=== PATIENT | female | born 1970 | race Caucasian/White ===

== ENCOUNTER → 2016-08-06 | Outpatient (CLI) | payer BC ==
[~2016-08-06] MED LIST: ALLE180T33 PO; DRIS50002 PO; FIRS1SOL3 PO; FLON0.054; LIAL1.2T PO; LIPI10TA PO; LISI10TA2 PO; LORA10TA2 PO; MICR1TAB PO; PRED10TA PO; Patient Own Medication PO; TYLE325T5 PO; UCER9TAB PO; ZOFR20TA PO
== END ==
LOC: M SMT 08:18
PROVIDERS: ATTEND Physician Assistant Medical
DX: K51.00 Ulcerative (chronic) pancolitis without complications (principal)

== ENCOUNTER 2016-08-09 07:40 | Outpatient (CLI) | payer BC ==
[~2016-08-09] VITALS: Ht 157.5 cm; Wt 80.0 kg
[~2016-08-09 07:40] MED LIST changes: -MICR1TAB PO; +MICR1TAB16 PO
[2016-08-09] MEDS ORDERED: NS 1,000 ML IV SCH (09:00)
[2016-08-09] MEDS ORDERED: inFLIXimab INJECTION 400 MG in NS 210 ML IV ONE (09:00)
[2016-08-09] MEDS ORDERED: diphenhydrAMINE 25 MG CAP PO SCH (09:00)
== END 2016-08-09 10:45 | disposition home or self-care (01) ==
LOC: M INFU 07:40
PROVIDERS: ATTEND Internal Medicine Gastroenterology
DX: K51.90 Ulcerative colitis, unspecified, without complications (principal); I10 Essential (primary) hypertension; E78.5 Hyperlipidemia, unspecified; F17.200 Nicotine dependence, unspecified, uncomplicated; Z79.899 Other long term (current) drug therapy
CPT/HCPCS: 96413; 96415; J1745

== ENCOUNTER → 2016-09-17 | Outpatient (CLI) | payer BC ==
[2016-09-17 08:34] LABS: ALBUMIN 3.6 GM/DL (3.2-5.2); ALBUMIN/GLOBULIN RATIO 1.03 (1.00-1.93); ALKALINE PHOSPHATASE 59 U/L (45-117); ALT/SGPT 34 U/L (12-78); ANION GAP 11 MEQ/L (8-16); AST/SGOT 27 U/L (15-37); BILIRUBIN,TOTAL 0.5 MG/DL (0.2-1.0); BLOOD UREA NITROGEN 16 MG/DL (7-18); CALCIUM LEVEL 9.2 MG/DL (8.5-10.1); CARBON DIOXIDE LEVEL 25 MEQ/L (21-32); CHLORIDE LEVEL 106 MEQ/L (98-107); CHOLESTEROL LEVEL 183 MG/DL (<200); CREATININE FOR GFR 0.76 MG/DL (0.55-1.02); GLOMERULAR FILTRATION RATE > 60.0 (>58); GLUCOSE, FASTING 86 MG/DL (70-105); POTASSIUM SERUM 4.1 MEQ/L (3.5-5.1); SODIUM LEVEL 142 MEQ/L (136-145); TOTAL PROTEIN 7.1 GM/DL (6.4-8.2); TRIGLYCERIDES LEVEL 179 MG/DL (<150)
== END ==
LOC: M LAB 07:16
PROVIDERS: ATTEND Nurse Practitioner Family
DX: E78.2 Mixed hyperlipidemia (principal); I10 Essential (primary) hypertension; E55.9 Vitamin D deficiency, unspecified

== ENCOUNTER 2016-09-27 10:49 | Outpatient (CLI) | payer BC ==
[~2016-09-27] VITALS: Ht 157.5 cm; Wt 80.0 kg
[~2016-09-27 10:49] MED LIST changes: +NS 1,000 ML IV SCH; +diphenhydrAMINE 25 MG CAP PO SCH; +inFLIXimab INJECTION 400 MG in NS 210 ML IV ONE
== END 2016-09-27 13:50 | disposition home or self-care (01) ==
LOC: M INFU 10:49
PROVIDERS: ATTEND Internal Medicine Gastroenterology
DX: K51.90 Ulcerative colitis, unspecified, without complications (principal); I10 Essential (primary) hypertension; E78.5 Hyperlipidemia, unspecified; Z79.899 Other long term (current) drug therapy
CPT/HCPCS: 96413; 96415; J1745

== ENCOUNTER 2016-11-19 08:35 | Outpatient (CLI) | payer BC ==
[~2016-11-19] VITALS: Ht 157.5 cm; Wt 80.0 kg
[~2016-11-19 08:35] MED LIST changes: -NS 1,000 ML IV SCH; -inFLIXimab INJECTION 400 MG in NS 210 ML IV ONE
[2016-11-19] MEDS ORDERED: NS 1,000 ML IV SCH (08:45)
[2016-11-19] MEDS ORDERED: inFLIXimab INJECTION 400 MG in NS 210 ML IV ONE (08:45)
== END 2016-11-19 12:05 | disposition home or self-care (01) ==
LOC: M INFU 08:35
PROVIDERS: ATTEND Internal Medicine Gastroenterology
DX: K51.90 Ulcerative colitis, unspecified, without complications (principal); E78.5 Hyperlipidemia, unspecified; I10 Essential (primary) hypertension; Z79.899 Other long term (current) drug therapy; Z72.0 Tobacco use
CPT/HCPCS: 96413; 96415; J1745

== ENCOUNTER → 2016-12-29 | Outpatient (CLI) | payer BC ==
[~2016-12-29] MED LIST changes: -diphenhydrAMINE 25 MG CAP PO SCH
--- NOTE | 2016-12-29 10:42 | REPMRS ---
Patient History The patient states she had a clinical breast exam in 12/2016. Family history of colorectal cancer in father at age 50 or over and colorectal cancer in 2 paternal uncles at age 50 or over. Taking hormonal contraceptives for 14 years. Digital Woman Screen Mammo: December 29, 2016 - Exam #: [id number] Bilateral CC and MLO view(s) were taken. Technologist: Coleen Soto Technologist Prior study comparison: December 30, 2015, digital woman screen mammo performed at [facility]. December 06, 2014, digital woman screen mammo performed at [facility]. December 06, 2013, digital woman screen mammo performed at [facility]. FINDINGS: There are scattered fibroglandular densities. There has been no change in the appearance of the mammogram from the prior studies. There is a mild amount of scattered fibroglandular density which is fairly symmetric. There is no interval development of dominant mass, architectural distortion, or clustered microcalcification suggestive of malignancy. ASSESSMENT: BI-RADS/ACR category 1 mammogram. Negative. Recommendation Routine screening mammogram in 1 year (for women over age 40). This mammogram was interpreted with the aid of an FDA-approved computer-aided dectection system. Electronically Signed By: Owen Mendoza MD 12/29/16 6530
== END ==
LOC: M WHC 07:50
PROVIDERS: ATTEND Nurse Practitioner Women's Health
DX: Z12.31 Encounter for screening mammogram for malignant neoplasm of breast (principal); Z92.0 Personal history of contraception

== ENCOUNTER → 2016-12-29 | Outpatient (REF) | payer BC | LOC: M SFHCWAGY 08:23 | PROVIDERS: ATTEND Nurse Practitioner Women's Health | DX: R87.610 Atypical squamous cells of undetermined significance on cytologic smear of cervix (ASC-US) (principal) ==

== ENCOUNTER → 2017-01-03 | Outpatient (REF) | payer BC | LOC: M LAB REF 15:34 | PROVIDERS: ATTEND Physician Assistant Medical | DX: K51.00 Ulcerative (chronic) pancolitis without complications (principal) ==

== ENCOUNTER → 2017-01-04 | Outpatient (CLI) | payer BC ==
[2017-01-04 15:01] LABS: BASO % 0.3 % (0.0-1.0); EOS % 0.5 % (0.0-3.0); LARGE UNSTAINED CELL # 0.2 K/mm3 (0.0-0.4); LARGE UNSTAINED CELL % 3.6 % (0.0-4.0); LYMPH % 18.9 % (24.0-44.0); MEAN CORPUSCULAR HEMOGLOBIN 31.6 pg (27.0-33.0); MEAN CORPUSCULAR HGB CONC 34.2 g/dl (32.0-36.5); MEAN CORPUSCULAR VOLUME 92.2 fl (80.0-96.0); MONO # 0.4 K/mm3 (0.0-0.8); MONO % 7.5 % (0.0-5.0); NEUTROPHILS # 3.6 K/mm3 (1.8-7.7); NEUTROPHILS % 69.3 % (36.0-66.0); PLATELET COUNT, AUTOMATED 303 k/mm3 (150-450); WHITE BLOOD COUNT 5.2 K/mm3 (4.0-10.0)
[2017-01-04 15:19] LABS: ALBUMIN 3.9 GM/DL (3.2-5.2); ALBUMIN/GLOBULIN RATIO 1.08 (1.00-1.93); ALKALINE PHOSPHATASE 61 U/L (45-117); ALT/SGPT 62 U/L (12-78); ANION GAP 8 MEQ/L (8-16); AST/SGOT 58 U/L (15-37); BILIRUBIN,TOTAL 0.4 MG/DL (0.2-1.0); BLOOD UREA NITROGEN 13 MG/DL (7-18); CALCIUM LEVEL 8.4 MG/DL (8.5-10.1); CARBON DIOXIDE LEVEL 22 MEQ/L (21-32); CHLORIDE LEVEL 104 MEQ/L (98-107); CREATININE FOR GFR 0.71 MG/DL (0.55-1.02); GLOMERULAR FILTRATION RATE > 60.0 (>58); GLUCOSE, FASTING 89 MG/DL (70-105); POTASSIUM SERUM 3.1 MEQ/L (3.5-5.1); SODIUM LEVEL 134 MEQ/L (136-145); TOTAL PROTEIN 7.5 GM/DL (6.4-8.2)
[2017-01-04 15:51] LABS: ERYTHROCYTE SEDIMENTATION RATE 26 mm/hr (0-20)
== END ==
LOC: M LAB 13:59
PROVIDERS: ATTEND Internal Medicine Gastroenterology
DX: K51.011 Ulcerative (chronic) pancolitis with rectal bleeding (principal)

== ENCOUNTER → 2017-01-14 | Outpatient (CLI) | payer BC ==
[~2017-01-14] VITALS: Ht 157.5 cm; Wt 79.8 kg
[~2017-01-14] MED LIST changes: +NS 1,000 ML IV SCH; +diphenhydrAMINE 25 MG CAP PO SCH; +inFLIXimab INJECTION 400 MG in NS 210 ML IV ONE
== END ==
LOC: M INFU 07:43
PROVIDERS: ATTEND Internal Medicine Gastroenterology
DX: K51.90 Ulcerative colitis, unspecified, without complications (principal); F17.210 Nicotine dependence, cigarettes, uncomplicated; Z79.899 Other long term (current) drug therapy
CPT/HCPCS: 96413; 96415; J1745

== ENCOUNTER 2017-03-07 12:11 | Outpatient (CLI) | payer BC ==
[~2017-03-07] VITALS: Ht 157.5 cm; Wt 79.8 kg
[~2017-03-07 12:11] MED LIST changes: -NS 1,000 ML IV SCH; -inFLIXimab INJECTION 400 MG in NS 210 ML IV ONE
[2017-03-07] MEDS ORDERED: inFLIXimab INJECTION 400 MG in NS 210 ML IV ONE (12:30)
[2017-03-07] MEDS ORDERED: NS 1,000 ML IV SCH (12:30)
== END 2017-03-07 13:25 | disposition home or self-care (01) ==
LOC: M INFU 12:11
PROVIDERS: ATTEND Internal Medicine Gastroenterology
DX: K51.90 Ulcerative colitis, unspecified, without complications (principal); Z79.899 Other long term (current) drug therapy; Z72.0 Tobacco use
CPT/HCPCS: 96413; 96415; J1745

== ENCOUNTER → 2017-04-05 | Outpatient (CLI) | payer BC ==
[~2017-04-05] MED LIST changes: -diphenhydrAMINE 25 MG CAP PO SCH
[2017-04-05 07:45] LABS: ALBUMIN 3.7 GM/DL (3.2-5.2); ALBUMIN/GLOBULIN RATIO 0.97 (1.00-1.93); ALKALINE PHOSPHATASE 50 U/L (45-117); ALT/SGPT 32 U/L (12-78); ANION GAP 10 MEQ/L (8-16); AST/SGOT 18 U/L (15-37); BILIRUBIN,TOTAL 0.5 MG/DL (0.2-1.0); BLOOD UREA NITROGEN 15 MG/DL (7-18); CALCIUM LEVEL 8.9 MG/DL (8.5-10.1); CARBON DIOXIDE LEVEL 24 MEQ/L (21-32); CHLORIDE LEVEL 108 MEQ/L (98-107); GLOMERULAR FILTRATION RATE > 60.0 (>58); GLUCOSE, FASTING 90 MG/DL (70-105); POTASSIUM SERUM 4.6 MEQ/L (3.5-5.1); SODIUM LEVEL 142 MEQ/L (136-145); TOTAL PROTEIN 7.5 GM/DL (6.4-8.2)
== END ==
LOC: M LAB 06:32
PROVIDERS: ATTEND Nurse Practitioner Family
DX: I10 Essential (primary) hypertension (principal); E55.9 Vitamin D deficiency, unspecified

== ENCOUNTER → 2017-04-15 | Outpatient (CLI) | payer BC ==
--- NOTE | 2017-04-15 10:28 | REP ---
Renal ultrasound: The kidneys are normal size. The right kidney measures 10.9 x 501 x 4.3 cm. Left kidney measures 1.2 x 5.9 x 4.6 cm. Renal cortical echogenicity is normal bilaterally. There is no calculus, hydronephrosis or mass in the right and left kidneys. There is a 2.0 cm cyst in the upper pole of the left kidney. This measured 1.[address] of the abdomen pelvis dated 04/24/2015. There is no right renal cyst. Bladder ultrasound: The bladder is adequately distended. There are bilateral ureteral jets into the urinary bladder. No bladder wall polyps or masses are identified. Impression: 2.0 cm left renal upper pole cyst as described. Otherwise, negative renal ultrasound.
== END ==
LOC: M WHC 08:10
PROVIDERS: ATTEND Nurse Practitioner Family
DX: N28.1 Cyst of kidney, acquired (principal)

== ENCOUNTER 2017-05-02 11:41 | Outpatient (CLI) | payer BC ==
[2017-05-02] MEDS ORDERED: diphenhydrAMINE 25 MG CAP PO ONE (11:45)
[2017-05-02] MEDS ORDERED: NS 1,000 ML IV SCH (11:45)
[2017-05-02] MEDS ORDERED: inFLIXimab INJECTION 400 MG in NS 210 ML IV ONE (11:45)
== END 2017-05-02 14:30 | disposition home or self-care (01) ==
LOC: M INFU 11:41
PROVIDERS: ATTEND Internal Medicine Gastroenterology
DX: K51.90 Ulcerative colitis, unspecified, without complications (principal); Z79.899 Other long term (current) drug therapy
CPT/HCPCS: 96413; 96415; J1745

== ENCOUNTER 2017-06-27 11:49 | Outpatient (CLI) | payer BC ==
[~2017-06-27 11:49] MED LIST changes: +NS 1,000 ML IV SCH; +diphenhydrAMINE 25 MG CAP PO ONE; +inFLIXimab INJECTION 400 MG in NS 210 ML IV ONE
== END 2017-06-27 14:45 | disposition home or self-care (01) ==
LOC: M INFU 11:49
PROVIDERS: ATTEND Internal Medicine Gastroenterology
DX: K51.911 Ulcerative colitis, unspecified with rectal bleeding (principal); Z86.19 Personal history of other infectious and parasitic diseases; I10 Essential (primary) hypertension; E11.9 Type 2 diabetes mellitus without complications; E78.5 Hyperlipidemia, unspecified; Z79.899 Other long term (current) drug therapy
CPT/HCPCS: 96413; 96415; J1745

== ENCOUNTER → 2017-08-11 | Outpatient (CLI) | payer BC ==
[2017-08-12 09:47] LABS: HEPATITIS B SURFACE ANTIGEN NEGATIVE (NEGATIVE)
[2017-08-13 08:06] LABS: QUANTIFERON GOLD TB Negative (Negative); TB Test (QFT) Antigen 0.04 IU/mL (.); TB Test (QFT) Antigen Minus Ni 0.03 IU/mL (.); TB Test (QFT) Mitogen >10.00 IU/mL (.); TB Test (QFT) Nil 0.01 IU/mL (.)
== END ==
LOC: M LAB 08:54
DX: K51.00 Ulcerative (chronic) pancolitis without complications (principal)
CPT/HCPCS: 87340

== ENCOUNTER 2017-08-22 11:49 | Outpatient (CLI) | payer BC ==
[2017-08-22] MEDS: diphenhydrAMINE 25 MG CAP PO (12:17)
[2017-08-22] MEDS: NS 1,000 ML IV (12:17)
[2017-08-22] MEDS: inFLIXimab INJECTION 400 MG in NS 210 ML IV (12:18)
== END 2017-08-22 14:50 | disposition home or self-care (01) ==
LOC: M INFU 11:49
DX: K51.90 Ulcerative colitis, unspecified, without complications (principal); Z86.19 Personal history of other infectious and parasitic diseases; Z79.899 Other long term (current) drug therapy
CPT/HCPCS: 96413

== ENCOUNTER → 2017-10-04 | Outpatient (CLI) | payer BC ==
[2017-10-04 07:14] LABS: ALBUMIN 3.6 GM/DL (3.2-5.2); ALBUMIN/GLOBULIN RATIO 0.95 (1.00-1.93); ALKALINE PHOSPHATASE 53 U/L (45-117); ALT/SGPT 19 U/L (12-78); ANION GAP 10 MEQ/L (8-16); AST/SGOT 14 U/L (7-37); BILIRUBIN,TOTAL 0.4 MG/DL (0.2-1.0); BLOOD UREA NITROGEN 15 MG/DL (7-18); CALCIUM LEVEL 8.7 MG/DL (8.5-10.1); CARBON DIOXIDE LEVEL 22 MEQ/L (21-32); CHLORIDE LEVEL 108 MEQ/L (98-107); CHOLESTEROL LEVEL 165 MG/DL (<200); CHOLESTEROL RISK RATIO 2.462 (<5); CREATININE FOR GFR 0.76 MG/DL (0.55-1.30); GLOMERULAR FILTRATION RATE > 60.0 (>58); GLUCOSE, FASTING 94 MG/DL (70-100); HDL CHOLESTEROL 67 MG/DL (>40); LDL CHOLESTEROL 57.2 MG/DL (<100); NON-HDL-C 98 MG/DL; POTASSIUM SERUM 4.2 MEQ/L (3.5-5.1); SODIUM LEVEL 140 MEQ/L (136-145); TOTAL PROTEIN 7.4 GM/DL (6.4-8.2); TRIGLYCERIDES LEVEL 204 MG/DL (<150)
[2017-10-04 10:01] LABS: TOTAL 25(OH) VITAMIN D 31.1 NG/ML (30.0-100.0)
== END ==
LOC: M LAB 06:23
DX: I10 Essential (primary) hypertension (principal); E78.2 Mixed hyperlipidemia; E55.9 Vitamin D deficiency, unspecified
CPT/HCPCS: 80053

== ENCOUNTER 2017-10-17 12:04 | Outpatient (CLI) | payer BC ==
[2017-10-17] MEDS: inFLIXimab INJECTION 400 MG in NS 210 ML IV (12:56)
[2017-10-17] MEDS: diphenhydrAMINE 25 MG CAP PO (12:56)
[2017-10-17] MEDS: NS 1,000 ML IV (12:56)
== END 2017-10-17 15:45 | disposition home or self-care (01) ==
LOC: M INFU 12:04
DX: K51.90 Ulcerative colitis, unspecified, without complications (principal); F17.210 Nicotine dependence, cigarettes, uncomplicated; Z79.899 Other long term (current) drug therapy; J30.89 Other allergic rhinitis; Z86.19 Personal history of other infectious and parasitic diseases; Z94.89 Other transplanted organ and tissue status
CPT/HCPCS: J1745

== ENCOUNTER 2017-12-12 12:14 | Outpatient (CLI) | payer BC ==
[2017-12-12] MEDS: diphenhydrAMINE 25 MG CAP PO (12:32)
[2017-12-12] MEDS: ACETAMINOPHEN TAB 650MG DOSE (2X325MG) PO (12:32)
[2017-12-12] MEDS: NS 1,000 ML IV (12:32)
[2017-12-12] MEDS: FILTER 1.2 MICRON (ADULT TPN/MANNITOL/REMICADE) XX (12:34)
[2017-12-12] MEDS: inFLIXimab INJECTION 500 MG in NS 200 ML IV (12:34)
== END 2017-12-12 15:00 | disposition home or self-care (01) ==
LOC: M INFU 12:14
DX: K51.80 Other ulcerative colitis without complications (principal); Z79.899 Other long term (current) drug therapy
CPT/HCPCS: J1745

== ENCOUNTER → 2017-12-29 | Outpatient (REF) | payer BC | LOC: M SFHCWAGY 08:39 | DX: Z12.4 Encounter for screening for malignant neoplasm of cervix (principal) | CPT/HCPCS: G0123 ==

== ENCOUNTER 2018-02-06 13:16 | Outpatient (CLI) | payer BC ==
[2018-02-06] MEDS: ACETAMINOPHEN TAB 650MG DOSE (2X325MG) PO (13:45)
[2018-02-06] MEDS: FILTER 1.2 MICRON (ADULT TPN/MANNITOL/REMICADE) XX (13:45)
[2018-02-06] MEDS ORDERED: NS 1,000 ML IV (13:45)
[2018-02-06] MEDS: diphenhydrAMINE 25 MG CAP PO (14:03)
[2018-02-06] MEDS: inFLIXimab INJECTION 500 MG in NS 200 ML IV (14:33)
== END 2018-02-06 17:00 | disposition home or self-care (01) ==
LOC: M INFU 13:16
DX: K51.90 Ulcerative colitis, unspecified, without complications (principal); Z79.899 Other long term (current) drug therapy
CPT/HCPCS: J1745

== ENCOUNTER → 2018-03-30 | Outpatient (CLI) | payer BC ==
[2018-03-30 07:09] LABS: BASO # 0.1 10^3/uL (0.0-0.2); BASO % 0.6 % (0.0-1.0); EOS # 0.1 10^3/uL (0.0-0.50); EOS % 1.4 % (0.0-3.0); HEMATOCRIT 41.2 % (36.0-47.0); HEMOGLOBIN 13.8 g/dl (12.0-15.5); IMMATURE GRANULOCYTE % 0.3 % (0-3.0); LYMPH # 2.4 10^3/uL (1.5-4.5); LYMPH % 30.6 % (24.0-44.0); MEAN CORPUSCULAR HGB CONC 33.5 g/dl (32.0-36.5); MEAN CORPUSCULAR VOLUME 92.6 fl (80.0-96.0); MONO # 0.6 10^3/uL (0.0-0.8); MONO % 8.2 % (0.0-5.0); NEUTROPHILS # 4.6 10^3/uL (1.8-7.7); NEUTROPHILS % 58.9 % (36.0-66.0); PLATELET COUNT, AUTOMATED 347 10^3/uL (150-450); RED BLOOD COUNT 4.45 10^6/uL (4.00-5.40); RED CELL DISTRIBUTION WIDTH 13.5 % (11.5-14.5); WHITE BLOOD COUNT 7.8 10^3/uL (4.0-10.0)
== END ==
LOC: M LAB 06:33
DX: K51.00 Ulcerative (chronic) pancolitis without complications (principal)

== ENCOUNTER → 2018-03-30 | Outpatient (CLI) | payer BC ==
[2018-03-30 07:36] LABS: ALBUMIN 3.7 GM/DL (3.2-5.2); ALKALINE PHOSPHATASE 51 U/L (45-117); ALT/SGPT 33 U/L (12-78); ANION GAP 14 MEQ/L (8-16); AST/SGOT 25 U/L (7-37); BILIRUBIN,TOTAL 0.4 MG/DL (0.2-1.0); BLOOD UREA NITROGEN 14 MG/DL (7-18); CARBON DIOXIDE LEVEL 20 MEQ/L (21-32); CHLORIDE LEVEL 108 MEQ/L (98-107); CHOLESTEROL LEVEL 175 MG/DL (<200); CHOLESTEROL RISK RATIO 2.777 (<5); CREATININE FOR GFR 0.76 MG/DL (0.55-1.30); FREE T4 1.14 NG/DL (0.76-1.46); GLOMERULAR FILTRATION RATE > 60.0 (>58); GLUCOSE, FASTING 85 MG/DL (70-100); HDL CHOLESTEROL 63 MG/DL (>40); NON-HDL-C 112 MG/DL; POTASSIUM SERUM 4.2 MEQ/L (3.5-5.1); SODIUM LEVEL 142 MEQ/L (136-145); TOTAL PROTEIN 7.4 GM/DL (6.4-8.2); TRIGLYCERIDES LEVEL 180 MG/DL (<150)
[2018-03-30 13:01] LABS: TOTAL 25(OH) VITAMIN D 48.6 NG/ML (30.0-100.0)
== END ==
LOC: M LAB 06:35
DX: I10 Essential (primary) hypertension (principal)

== ENCOUNTER 2018-04-03 12:18 | Outpatient (CLI) | payer BC ==
[2018-04-03] MEDS: NS 1,000 ML IV (12:47)
[2018-04-03] MEDS: inFLIXimab INJECTION 500 MG in NS 200 ML IV (12:47)
[2018-04-03] MEDS: FILTER 1.2 MICRON (ADULT TPN/MANNITOL/REMICADE) XX (12:47)
[2018-04-03] MEDS: ACETAMINOPHEN TAB 650MG DOSE (2X325MG) PO (12:48)
[2018-04-03] MEDS: diphenhydrAMINE 25 MG CAP PO (12:48)
== END 2018-04-03 15:40 | disposition home or self-care (01) ==
LOC: M INFU 12:18
DX: K51.919 Ulcerative colitis, unspecified with unspecified complications (principal); I10 Essential (primary) hypertension; Z79.899 Other long term (current) drug therapy; J30.2 Other seasonal allergic rhinitis; Z98.51 Tubal ligation status; Z90.49 Acquired absence of other specified parts of digestive tract
CPT/HCPCS: J1745

== ENCOUNTER 2018-04-11 08:46 | Day surgery (SDC) | payer BC ==
[~2018-04-11 08:46] MED LIST changes: -ALLE180T33 PO; -DRIS50002 PO; -FIRS1SOL3 PO; -FLON0.054; -LIAL1.2T PO; +LIDOCAINE 2% INJ 100 MG/5 ML SDV (FOR ANES.) As Ordered; -LIPI10TA PO; -LISI10TA2 PO; -LORA10TA2 PO; -MICR1TAB16 PO; -NS 1,000 ML IV SCH; -PRED10TA PO; +PROPOFOL 200 MG/20 ML VIAL As Ordered; -Patient Own Medication PO; -TYLE325T5 PO; -UCER9TAB PO; -ZOFR20TA PO; -diphenhydrAMINE 25 MG CAP PO ONE; -inFLIXimab INJECTION 400 MG in NS 210 ML IV ONE
[2018-04-11] MEDS ORDERED: NS 1,000 ML IV (09:15)
[2018-04-11] MEDS ORDERED: PROPOFOL 200 MG/20 ML VIAL As Ordered ×2 (10:25)
== END 2018-04-11 11:05 | disposition home or self-care (01) ==
LOC: M OPP 08:46
DX: Z12.11 Encounter for screening for malignant neoplasm of colon (principal); Z80.0 Family history of malignant neoplasm of digestive organs; Z86.010 Personal history of colon polyps; K51.40 Inflammatory polyps of colon without complications; I10 Essential (primary) hypertension; E78.5 Hyperlipidemia, unspecified; Z86.19 Personal history of other infectious and parasitic diseases; Z87.891 Personal history of nicotine dependence; Z79.899 Other long term (current) drug therapy
CPT/HCPCS: 45385

== ENCOUNTER 2018-05-29 12:12 | Outpatient (CLI) | payer BC ==
[2018-05-29] MEDS: ACETAMINOPHEN TAB 650MG DOSE (2X325MG) PO (12:15)
[2018-05-29] MEDS: NS 1,000 ML IV (12:15)
[2018-05-29] MEDS: FILTER 1.2 MICRON (ADULT TPN/MANNITOL/REMICADE) XX (12:15)
[2018-05-29] MEDS: diphenhydrAMINE 25 MG CAP PO (12:51)
[2018-05-29] MEDS: inFLIXimab INJECTION 500 MG in NS 200 ML IV (12:53)
== END 2018-05-29 15:25 | disposition home or self-care (01) ==
LOC: M INFU 12:12
DX: K51.90 Ulcerative colitis, unspecified, without complications (principal); Z79.899 Other long term (current) drug therapy
CPT/HCPCS: J1745

== ENCOUNTER 2018-07-26 13:40 | Outpatient (CLI) | payer BC ==
[~2018-07-26] VITALS: Ht 157.5 cm; Wt 83.9 kg
[~2018-07-26 13:40] MED LIST changes: +ALLE180T33 PO; +ATOR1TAB21 PO; +AZEL1SPR3; +DRIS50003 PO; +FIRS50SO PO; +FLON0.054; +FLUTISP; +INFL10VL IV; +LIAL1.2T PO; -LIDOCAINE 2% INJ 100 MG/5 ML SDV (FOR ANES.) As Ordered; +LIPI10TA PO; +LISI10TA2 PO; +LORA-243 PO; +MICR1TAB16 PO; +PRED10TA PO; -PROPOFOL 200 MG/20 ML VIAL As Ordered; +Patient Own Medication PO; +TYLE325T5 PO; +UCER9TAB PO; +VITA200015 PO; +VITATAB54 PO; +ZOFR4TAB16 PO
[2018-07-26 13:58] VITALS: BP 154/72
[2018-07-26] MEDS ORDERED: inFLIXimab INJECTION 500 MG in NS 200 ML IV ONE (14:00)
[2018-07-26] MEDS ORDERED: diphenhydrAMINE 25MG PO PRIOR TO INFUSION PO ONE (14:00)
[2018-07-26] MEDS ORDERED: NS 1,000 ML IV SCH (14:00)
[2018-07-26] MEDS ORDERED: ACETAMINOPHEN 650MG PO PRIOR TO INFUSION PO ONE (14:00)
[2018-07-26] MEDS ORDERED: FILTER 1.2 MICRON (ADULT TPN/MANNITOL/REMICADE) XX ONE (14:00)
[2018-07-26 14:45] VITALS: BP 119/63
[2018-07-26 15:30] VITALS: BP 112/60
[2018-07-26 16:00] VITALS: BP 116/66
[2018-07-26 16:15] VITALS: BP 116/70
== END 2018-07-26 16:20 | disposition home or self-care (01) ==
LOC: M INFU 13:40
PROVIDERS: ATTEND Internal Medicine Gastroenterology
DX: K51.90 Ulcerative colitis, unspecified, without complications (principal); I10 Essential (primary) hypertension; Z79.899 Other long term (current) drug therapy
CPT/HCPCS: 96413; 96415; J1745

== ENCOUNTER → 2018-08-14 | Outpatient (CLI) | payer BC | LOC: M LAB 10:11 | PROVIDERS: ATTEND Physician Assistant Medical | DX: K51.00 Ulcerative (chronic) pancolitis without complications (principal) ==

== ENCOUNTER 2018-09-18 12:15 | Outpatient (CLI) | payer BC ==
[~2018-09-18] VITALS: Ht 162.6 cm; Wt 83.9 kg
[2018-09-18] VITALS (8 sets, daily range): BP systolic 105–155; BP diastolic 56–78
[2018-09-18] MEDS: ACETAMINOPHEN 650MG PO PRIOR TO INFUSION PO ONE ×2 (12:52→13:23)
[2018-09-18] MEDS: diphenhydrAMINE 25MG PO PRIOR TO INFUSION PO ONE ×2 (12:52→13:23)
[2018-09-18] MEDS ORDERED: FILTER 1.2 MICRON (ADULT TPN/MANNITOL/REMICADE) XX ONE (13:00)
[2018-09-18] MEDS ORDERED: inFLIXimab INJECTION 500 MG in NS 200 ML IV ONE (13:00)
[2018-09-18] MEDS ORDERED: NS 1,000 ML IV SCH (13:00)
== END 2018-09-18 15:20 | disposition home or self-care (01) ==
LOC: M INFU 12:15
PROVIDERS: ATTEND Internal Medicine Gastroenterology
DX: K51.90 Ulcerative colitis, unspecified, without complications (principal); Z79.899 Other long term (current) drug therapy; J30.2 Other seasonal allergic rhinitis
CPT/HCPCS: 96413; 96415; J1745

== ENCOUNTER → 2018-10-02 | Outpatient (CLI) | payer BC ==
[2018-10-02 07:37] LABS: ALBUMIN 3.6 GM/DL (3.2-5.2); ALT/SGPT 22 U/L (12-78); BILIRUBIN,TOTAL 0.5 MG/DL (0.2-1.0); BLOOD UREA NITROGEN 18 MG/DL (7-18); CALCIUM LEVEL 8.8 MG/DL (8.5-10.1); CARBON DIOXIDE LEVEL 23 MEQ/L (21-32); CHLORIDE LEVEL 107 MEQ/L (98-107); CHOLESTEROL LEVEL 157 MG/DL (<200); CHOLESTEROL RISK RATIO 2.275 (<5); GLOMERULAR FILTRATION RATE > 60.0 (>58); GLUCOSE, FASTING 89 MG/DL (70-100); HDL CHOLESTEROL 69 MG/DL (>40); LDL CHOLESTEROL 60 MG/DL (<100); NON-HDL-C 88 MG/DL; POTASSIUM SERUM 4.1 MEQ/L (3.5-5.1); SODIUM LEVEL 139 MEQ/L (136-145); TOTAL PROTEIN 7.2 GM/DL (6.4-8.2); TRIGLYCERIDES LEVEL 141 MG/DL (<150)
[2018-10-02 10:22] LABS: TOTAL 25(OH) VITAMIN D 30.8 NG/ML (30.0-100.0)
== END ==
LOC: M LAB 06:40
PROVIDERS: ATTEND Nurse Practitioner Family
DX: I10 Essential (primary) hypertension (principal); E78.2 Mixed hyperlipidemia; E55.9 Vitamin D deficiency, unspecified

== ENCOUNTER 2018-11-13 12:20 | Outpatient (CLI) | payer BC ==
[~2018-11-13] VITALS: Ht 162.6 cm; Wt 83.9 kg
[~2018-11-13 12:20] MED LIST changes: +PRED-351 PO; -PRED10TA PO
[2018-11-13 12:29] VITALS: BP 148/68
[2018-11-13] MEDS ORDERED: diphenhydrAMINE 25MG PO PRIOR TO INFUSION PO ONE (12:30)
[2018-11-13] MEDS ORDERED: NS 1,000 ML IV SCH (12:30)
[2018-11-13] MEDS ORDERED: inFLIXimab INJECTION 500 MG in NS 200 ML IV ONE (12:30)
[2018-11-13] MEDS ORDERED: ACETAMINOPHEN 650MG PO PRIOR TO INFUSION PO ONE (12:30)
[2018-11-13] MEDS ORDERED: FILTER 1.2 MICRON (ADULT TPN/MANNITOL/REMICADE) XX ONE (12:30)
[2018-11-13 14:49] VITALS: BP 115/71
[2018-11-13 15:05] VITALS: BP 119/78
== END 2018-11-13 15:15 | disposition home or self-care (01) ==
LOC: M INFU 12:20
PROVIDERS: ATTEND Internal Medicine Gastroenterology
DX: K51.90 Ulcerative colitis, unspecified, without complications (principal)
CPT/HCPCS: 96413; 96415; J1745

== ENCOUNTER → 2018-12-28 | Outpatient (CLI) | payer BC ==
--- NOTE | 2018-12-28 10:48 | REPMRS ---
Patient History The patient states she had a clinical breast exam in 12/2018. Family history of colorectal cancer at age 50 or over in father, colorectal cancer at age 50 or over in paternal uncle, colorectal cancer at age 50 or over in paternal uncle. Taking hormonal contraceptives for 16 years. 3D TOMOSYNTHESIS WAS PERFORMED. Digital Woman Screen Mammo: December 28, 2018 - Exam #: [id number] Bilateral CC and MLO view(s) were taken. Technologist: Sheila Garcia, Technologist Prior study comparison: December 29, 2017, digital woman screen mammo performed at [facility]. December 29, 2016, digital woman screen mammo performed at [facility]. FINDINGS: The breast tissue is heterogeneously dense. This may lower the sensitivity of mammography. There has been no change in the appearance of the mammogram from the prior studies. There is a moderate amount of residual fibroglandular tissue which is fairly symmetric. There is no interval development of dominant mass, areas of architectural distortion, or clustered microcalcification typical of malignancy. Assessment: BI-RADS/ACR category 1 mammogram. Negative Mammogram. Recommendation Routine screening mammogram in 1 year (for women over age 40). This mammogram was interpreted with the aid of an FDA-approved computer-aided dectection system. Electronically Signed By: Tom Grant MD 12/28/18 1714
== END ==
LOC: M WHC 08:06
PROVIDERS: ATTEND Nurse Practitioner Women's Health
DX: Z12.31 Encounter for screening mammogram for malignant neoplasm of breast (principal); Z80.0 Family history of malignant neoplasm of digestive organs; Z79.3 Long term (current) use of hormonal contraceptives

== ENCOUNTER 2019-01-09 12:03 | Outpatient (CLI) | payer BC ==
[~2019-01-09] VITALS: Ht 162.6 cm; Wt 85.7 kg
[2019-01-09 12:50] VITALS: BP 118/65
[2019-01-09] MEDS ORDERED: FILTER 1.2 MICRON (ADULT TPN/MANNITOL/REMICADE) XX ONE (13:00)
[2019-01-09] MEDS ORDERED: ACETAMINOPHEN 650MG PO PRIOR TO INFUSION PO ONE (13:00)
[2019-01-09] MEDS ORDERED: NS 1,000 ML IV SCH (13:00)
[2019-01-09] MEDS ORDERED: inFLIXimab INJECTION 500 MG in NS 200 ML IV ONE (13:00)
[2019-01-09] MEDS ORDERED: diphenhydrAMINE 25MG PO PRIOR TO INFUSION PO ONE (13:00)
== END 2019-01-09 14:10 | disposition home or self-care (01) ==
LOC: M INFU 12:03
PROVIDERS: ATTEND Physician Assistant Medical
DX: K51.919 Ulcerative colitis, unspecified with unspecified complications (principal)
CPT/HCPCS: 96413; J1745

== ENCOUNTER 2019-03-05 12:18 | Outpatient (CLI) | payer BC ==
[~2019-03-05] VITALS: Ht 162.6 cm; Wt 85.7 kg
[~2019-03-05 12:18] MED LIST changes: +LISI10TA15 PO; -LISI10TA2 PO
[2019-03-05 12:30] VITALS: BP 129/68
[2019-03-05] MEDS ORDERED: FILTER 1.2 MICRON (ADULT TPN/MANNITOL/REMICADE) XX ONE (12:45)
[2019-03-05] MEDS ORDERED: NS 1,000 ML IV SCH (13:30)
[2019-03-05] MEDS ORDERED: ACETAMINOPHEN 650MG PO PRIOR TO INFUSION PO ONE (13:30)
[2019-03-05] MEDS ORDERED: diphenhydrAMINE 25MG PO PRIOR TO INFUSION PO ONE (13:30)
[2019-03-05] MEDS ORDERED: inFLIXimab INJECTION 500 MG in NS 200 ML IV ONE (14:00)
== END 2019-03-05 14:45 | disposition home or self-care (01) ==
LOC: M INFU 12:18
PROVIDERS: ATTEND Internal Medicine Gastroenterology
DX: K51.90 Ulcerative colitis, unspecified, without complications (principal)
CPT/HCPCS: 96413; J1745

== ENCOUNTER → 2019-03-30 | Outpatient (CLI) | payer BC ==
[2019-03-30 07:45] LABS: BLOOD UREA NITROGEN 13 MG/DL (7-18); CALCIUM LEVEL 9.5 MG/DL (8.5-10.1); CARBON DIOXIDE LEVEL 23 MEQ/L (21-32); CHLORIDE LEVEL 108 MEQ/L (98-107); CREATININE FOR GFR 0.76 MG/DL (0.55-1.30); GLOMERULAR FILTRATION RATE > 60.0 (>58); GLUCOSE, FASTING 91 MG/DL (70-100); POTASSIUM SERUM 4.4 MEQ/L (3.5-5.1); SODIUM LEVEL 140 MEQ/L (136-145)
[2019-03-30 11:33] LABS: TOTAL 25(OH) VITAMIN D 38.6 NG/ML (30.0-100.0)
== END ==
LOC: M LAB 06:34
PROVIDERS: ATTEND Nurse Practitioner Family
DX: I10 Essential (primary) hypertension (principal); E55.9 Vitamin D deficiency, unspecified

== ENCOUNTER 2019-04-30 12:08 | Outpatient (CLI) | payer BC ==
[~2019-04-30] VITALS: Ht 157.5 cm; Wt 85.7 kg
[2019-04-30 12:15] VITALS: BP 127/62
[2019-04-30] MEDS ORDERED: diphenhydrAMINE 25MG PO PRIOR TO INFUSION PO ONE (12:15)
[2019-04-30] MEDS ORDERED: NS 1,000 ML IV SCH (12:15)
[2019-04-30] MEDS ORDERED: FILTER 1.2 MICRON (ADULT TPN/MANNITOL/REMICADE) XX ONE (12:15)
[2019-04-30] MEDS ORDERED: ACETAMINOPHEN 650MG PO PRIOR TO INFUSION PO ONE (12:15)
[2019-04-30] MEDS ORDERED: inFLIXimab INJECTION 500 MG in NS 200 ML IV ONE (12:15)
[2019-04-30 13:15] VITALS: BP 128/60
[2019-04-30 14:05] VITALS: BP 113/66
[2019-04-30 14:25] VITALS: BP 118/70
== END 2019-04-30 14:20 | disposition home or self-care (01) ==
LOC: M INFU 12:08
PROVIDERS: ATTEND Internal Medicine Gastroenterology
DX: K51.90 Ulcerative colitis, unspecified, without complications (principal)
CPT/HCPCS: 96413; J1745

== ENCOUNTER 2019-06-25 12:09 | Outpatient (CLI) | payer BC ==
[~2019-06-25] VITALS: Ht 157.5 cm; Wt 85.7 kg
[2019-06-25 12:15] VITALS: BP 125/82
[2019-06-25] MEDS ORDERED: inFLIXimab INJECTION 500 MG in NS 200 ML IV ONE (12:30)
[2019-06-25] MEDS ORDERED: diphenhydrAMINE 25MG PO PRIOR TO INFUSION PO ONE (12:30)
[2019-06-25] MEDS ORDERED: NS 1,000 ML IV SCH (12:30)
[2019-06-25] MEDS ORDERED: FILTER 1.2 MICRON (ADULT TPN/MANNITOL/REMICADE) XX ONE (12:30)
[2019-06-25] MEDS ORDERED: ACETAMINOPHEN 650MG PO PRIOR TO INFUSION PO ONE (12:30)
[2019-06-25 13:15] VITALS: BP 127/79
[2019-06-25 14:00] VITALS: BP 105/70
[2019-06-25 14:15] VITALS: BP 115/67
== END 2019-06-25 14:15 | disposition home or self-care (01) ==
LOC: M INFU 12:09
PROVIDERS: ATTEND Internal Medicine Gastroenterology
DX: K51.90 Ulcerative colitis, unspecified, without complications (principal)
CPT/HCPCS: 96413; J1745

== ENCOUNTER 2019-08-20 10:46 | Outpatient (CLI) | payer BC ==
[~2019-08-20] VITALS: Ht 157.5 cm; Wt 87.5 kg
[2019-08-20 10:56] VITALS: BP 144/69
[2019-08-20] MEDS ORDERED: ACETAMINOPHEN 650MG PO PRIOR TO INFUSION PO ONE (11:00)
[2019-08-20] MEDS ORDERED: diphenhydrAMINE 25MG IV PRIOR TO INFUSION IV ONE (11:00)
[2019-08-20] MEDS ORDERED: diphenhydrAMINE 25MG PO PRIOR TO INFUSION PO ONE (11:00)
[2019-08-20] MEDS ORDERED: NS 1,000 ML IV SCH (11:00)
[2019-08-20] MEDS ORDERED: inFLIXimab INJECTION 500 MG in NS 200 ML IV ONE (11:15)
[2019-08-20 12:46] VITALS: BP 164/72
== END 2019-08-20 12:50 | disposition home or self-care (01) ==
LOC: M INFU 10:46
PROVIDERS: ATTEND Internal Medicine Gastroenterology
DX: K51.90 Ulcerative colitis, unspecified, without complications (principal)
CPT/HCPCS: 96413; J1745

== ENCOUNTER → 2019-08-21 | Outpatient (CLI) | payer BC | LOC: M LAB 08:42 | PROVIDERS: ATTEND Physician Assistant Medical | DX: K51.00 Ulcerative (chronic) pancolitis without complications (principal) ==

== ENCOUNTER → 2019-09-13 | Outpatient (REF) | payer BC | LOC: M LAB REF 19:51 | PROVIDERS: ATTEND Nurse Practitioner Family | DX: J02.9 Acute pharyngitis, unspecified (principal) ==

== ENCOUNTER → 2019-09-16 | Outpatient (CLI) | payer BC ==
[2019-09-16 12:52] LABS: ALBUMIN 3.6 GM/DL (3.2-5.2); ALT/SGPT 71 U/L (12-78); BILIRUBIN,TOTAL 0.3 MG/DL (0.2-1.0); BLOOD UREA NITROGEN 11 MG/DL (7-18); CALCIUM LEVEL 8.6 MG/DL (8.5-10.1); CARBON DIOXIDE LEVEL 21 MEQ/L (21-32); CHLORIDE LEVEL 109 MEQ/L (98-107); CHOLESTEROL LEVEL 157 MG/DL (<200); CHOLESTEROL RISK RATIO 2.242 (<5); CREATININE FOR GFR 0.77 MG/DL (0.55-1.30); GLOMERULAR FILTRATION RATE > 60.0 (>58); GLUCOSE, FASTING 83 MG/DL (70-100); HDL CHOLESTEROL 70 MG/DL (>40); LDL CHOLESTEROL 57 MG/DL (<100); NON-HDL-C 87 MG/DL; POTASSIUM SERUM 4.2 MEQ/L (3.5-5.1); SODIUM LEVEL 141 MEQ/L (136-145); TOTAL PROTEIN 7.5 GM/DL (6.4-8.2); TRIGLYCERIDES LEVEL 149 MG/DL (<150)
[2019-09-17 09:25] LABS: TOTAL 25(OH) VITAMIN D 52.5 NG/ML (30.0-100.0)
== END ==
LOC: M WUC 08:36
PROVIDERS: ATTEND Nurse Practitioner Family
DX: I10 Essential (primary) hypertension (principal); E78.2 Mixed hyperlipidemia; E55.9 Vitamin D deficiency, unspecified

== ENCOUNTER 2019-10-15 12:03 | Outpatient (CLI) | payer BC ==
[~2019-10-15] VITALS: Ht 157.5 cm; Wt 85.7 kg
[2019-10-15 12:05] VITALS: BP 120/84
[2019-10-15] MEDS ORDERED: inFLIXimab INJECTION 500 MG in NS 200 ML IV ONE (13:00)
[2019-10-15] MEDS ORDERED: NS 1,000 ML IV SCH (13:00)
[2019-10-15] MEDS ORDERED: diphenhydrAMINE 25MG PO PRIOR TO INFUSION PO ONE (13:00)
[2019-10-15] MEDS ORDERED: ACETAMINOPHEN 650MG PO PRIOR TO INFUSION PO ONE (13:00)
== END 2019-10-15 14:35 | disposition home or self-care (01) ==
LOC: M INFU 12:03
PROVIDERS: ATTEND Internal Medicine Gastroenterology
DX: K51.90 Ulcerative colitis, unspecified, without complications (principal); J30.2 Other seasonal allergic rhinitis
CPT/HCPCS: 96413; J1745

== ENCOUNTER → 2019-12-31 | Outpatient (CLI) | payer BC ==
--- NOTE | 2019-12-31 09:08 | REPMRS ---
Patient History The patient states she has not had a clinical breast exam in over a year. Family history of colorectal cancer at age 50 or over in father, colorectal cancer at age 50 or over in paternal uncle, colorectal cancer at age 50 or over in paternal uncle. Taking hormonal contraceptives for 16 years. 3D TOMOSYNTHESIS WAS PERFORMED. The [facility] lifetime risk for breast cancer is 9.1%. VOLPARA DENSITY B. Digital Woman Screen Mammo: December 31, 2019 - Exam #: [id number] Bilateral CC and MLO view(s) were taken. Technologist: Sakshi Burr, Technologist Prior study comparison: December 28, 2018, bilateral digital woman screen mammo performed at [facility]. December 29, 2017, digital woman screen mammo performed at [facility]. FINDINGS: There are scattered fibroglandular densities. There has been no change in the appearance of the mammogram from the prior studies. There is a mild amount of residual fibroglandular tissue which is fairly symmetric. There is no interval development of dominant mass, architectural distortion, or clustered microcalcification suggestive of malignancy. Assessment: BI-RADS/ACR category 1 mammogram. Negative Mammogram. Recommendation Routine screening mammogram in 1 year (for women over age 40). This mammogram was interpreted with the aid of an FDA-approved computer-aided dectection system. Electronically Signed By: Tom Grant MD 12/31/19 0907
== END ==
LOC: M WHC 07:51
PROVIDERS: ATTEND Nurse Practitioner Women's Health
DX: Z12.31 Encounter for screening mammogram for malignant neoplasm of breast (principal)

== ENCOUNTER 2020-02-04 06:38 | Outpatient (CLI) | payer BC ==
[~2020-02-04] VITALS: Ht 157.5 cm; Wt 88.5 kg
[2020-02-04] MEDS ORDERED: diphenhydrAMINE 25MG CAP As Ordered ONE (06:51)
[2020-02-04] MEDS ORDERED: diphenhydrAMINE 25MG PO PRIOR TO INFUSION PO ONE (07:00)
[2020-02-04] MEDS ORDERED: inFLIXimab INJECTION 500 MG in NS 200 ML IV ONE (07:00)
[2020-02-04] MEDS ORDERED: NS 1,000 ML IV SCH (07:00)
[2020-02-04] MEDS ORDERED: ACETAMINOPHEN 650MG PO PRIOR TO INFUSION PO ONE (07:00)
[2020-02-04 07:11] VITALS: BP 133/77
[2020-02-04 07:30] VITALS: BP 128/79
[2020-02-04 08:27] VITALS: BP 158/79
== END 2020-02-04 08:25 | disposition home or self-care (01) ==
LOC: M INFU 06:38
PROVIDERS: ATTEND Internal Medicine Gastroenterology
DX: K51.90 Ulcerative colitis, unspecified, without complications (principal)
CPT/HCPCS: 96413; J1745

== ENCOUNTER 2020-04-02 06:44 | Outpatient (CLI) | payer BC ==
[~2020-04-02] VITALS: Ht 157.5 cm; Wt 88.5 kg
[2020-04-02] MEDS ORDERED: inFLIXimab INJECTION 500 MG in NS 200 ML IV ONE (07:00)
[2020-04-02] MEDS ORDERED: diphenhydrAMINE 25MG PO PRIOR TO INFUSION PO ONE (07:00)
[2020-04-02] MEDS ORDERED: NS 1,000 ML IV SCH (07:00)
[2020-04-02] MEDS ORDERED: ACETAMINOPHEN 650MG PO PRIOR TO INFUSION PO ONE (07:00)
[2020-04-02 07:04] VITALS: BP 121/77
[2020-04-02 07:07] VITALS: BP 121/77
[2020-04-02] MEDS ORDERED: diphenhydrAMINE 25MG CAP As Ordered ONE (07:15)
[2020-04-02 07:46] VITALS: BP 120/67
[2020-04-02 08:35] VITALS: BP 114/65
== END 2020-04-02 08:40 | disposition home or self-care (01) ==
LOC: M INFU 06:44
PROVIDERS: ATTEND Internal Medicine Gastroenterology
DX: K51.90 Ulcerative colitis, unspecified, without complications (principal)
CPT/HCPCS: 96413; J1745

== ENCOUNTER → 2020-05-24 | Outpatient (CLI) | payer BC ==
[2020-05-24 14:05] LABS: ALBUMIN 3.7 GM/DL (3.2-5.2); ALT/SGPT 43 U/L (12-78); BILIRUBIN,TOTAL 0.3 MG/DL (0.2-1.0); BLOOD UREA NITROGEN 13 MG/DL (7-18); CALCIUM LEVEL 9.2 MG/DL (8.5-10.1); CARBON DIOXIDE LEVEL 28 MEQ/L (21-32); CHLORIDE LEVEL 105 MEQ/L (98-107); CREATININE FOR GFR 0.77 MG/DL (0.55-1.30); GLOMERULAR FILTRATION RATE > 60.0 (>51); GLUCOSE, FASTING 120 MG/DL (70-100); SODIUM LEVEL 141 MEQ/L (136-145); TOTAL PROTEIN 7.3 GM/DL (6.4-8.2)
[2020-05-24 14:10] LABS: CREATININE, URINE 44.3 MG/DL; MALB URINE SIEMENS 5.1 MG/L; MAU/CREAT RATIO 11.5 MCG/MG (0.0-30.0)
[2020-05-26 11:20] LABS: TOTAL 25(OH) VITAMIN D 31.8 NG/ML (30.0-100.0)
== END ==
LOC: M WUC 09:08
PROVIDERS: ATTEND Nurse Practitioner Family
DX: E55.9 Vitamin D deficiency, unspecified (principal); I10 Essential (primary) hypertension

== ENCOUNTER 2020-05-28 06:49 | Outpatient (CLI) | payer BC ==
[~2020-05-28] VITALS: Ht 157.5 cm; Wt 88.5 kg
[2020-05-28 07:00] VITALS: BP 119/75
[2020-05-28] MEDS ORDERED: ACETAMINOPHEN 650MG PO PRIOR TO INFUSION PO ONE (07:00)
[2020-05-28] MEDS ORDERED: diphenhydrAMINE 25MG PO PRIOR TO INFUSION PO ONE (07:00)
[2020-05-28] MEDS ORDERED: NS 1,000 ML IV SCH (07:00)
[2020-05-28] MEDS ORDERED: inFLIXimab INJECTION 500 MG in NS 200 ML IV ONE (07:00)
[2020-05-28 07:31] VITALS: BP 119/75
[2020-05-28 07:50] VITALS: BP 139/88
[2020-05-28 08:45] VITALS: BP 134/80
== END 2020-05-28 08:45 | disposition home or self-care (01) ==
LOC: M INFU 06:49
PROVIDERS: ATTEND Internal Medicine Gastroenterology
DX: K51.90 Ulcerative colitis, unspecified, without complications (principal)
CPT/HCPCS: 96413; J1745

== ENCOUNTER 2020-07-22 06:56 | Outpatient (CLI) | payer BC ==
[~2020-07-22] VITALS: Ht 157.5 cm; Wt 84.4 kg
[2020-07-22] MEDS ORDERED: NS 1,000 ML IV SCH (07:00)
[2020-07-22] MEDS ORDERED: diphenhydrAMINE 25MG PO PRIOR TO INFUSION PO ONE (07:00)
[2020-07-22] MEDS ORDERED: ACETAMINOPHEN 650MG PO PRIOR TO INFUSION PO ONE (07:00)
[2020-07-22] MEDS ORDERED: inFLIXimab INJECTION 500 MG in NS 200 ML IV ONE (07:00)
[2020-07-22 07:30] VITALS: BP 122/84
[2020-07-22 07:46] VITALS: BP 140/80
[2020-07-22 08:40] VITALS: BP 136/74
== END 2020-07-22 08:40 | disposition home or self-care (01) ==
LOC: M INFU 06:56
PROVIDERS: ATTEND Internal Medicine Gastroenterology
DX: K51.90 Ulcerative colitis, unspecified, without complications (principal)
CPT/HCPCS: 96413; J1745

== ENCOUNTER 2020-09-15 06:55 | Outpatient (CLI) | payer BC ==
[~2020-09-15] VITALS: Ht 157.5 cm; Wt 84.4 kg
[2020-09-15 07:00] VITALS: BP 127/74
[2020-09-15] MEDS ORDERED: diphenhydrAMINE 25MG PO PRIOR TO INFUSION PO ONE (07:00)
[2020-09-15] MEDS ORDERED: NS 1,000 ML IV SCH (07:00)
[2020-09-15] MEDS ORDERED: inFLIXimab INJECTION 500 MG in NS 200 ML IV ONE (07:00)
[2020-09-15] MEDS ORDERED: ACETAMINOPHEN 650MG PO PRIOR TO INFUSION PO ONE (07:00)
[2020-09-15 08:00] VITALS: BP 127/74
[2020-09-15 08:15] VITALS: BP 136/72
[2020-09-15 09:15] VITALS: BP 123/77
== END 2020-09-15 09:15 | disposition home or self-care (01) ==
LOC: M INFU 06:55
PROVIDERS: ATTEND Internal Medicine Gastroenterology
DX: K51.90 Ulcerative colitis, unspecified, without complications (principal)
CPT/HCPCS: 96413; J1745

== ENCOUNTER → 2020-09-28 | Outpatient (CLI) | payer BC | LOC: M LAB 08:40 | PROVIDERS: ATTEND Physician Assistant Medical | DX: K51.00 Ulcerative (chronic) pancolitis without complications (principal) ==

== ENCOUNTER → 2020-09-28 | Outpatient (CLI) | payer BC ==
[2020-09-28 10:08] LABS: ALBUMIN 3.9 GM/DL (3.2-5.2); ALT/SGPT 24 U/L (12-78); BILIRUBIN,TOTAL 0.4 MG/DL (0.2-1.0); BLOOD UREA NITROGEN 15 MG/DL (7-18); CALCIUM LEVEL 9.7 MG/DL (8.5-10.1); CARBON DIOXIDE LEVEL 27 MEQ/L (21-32); CHLORIDE LEVEL 106 MEQ/L (98-107); CHOLESTEROL LEVEL 190 MG/DL (<200); CHOLESTEROL RISK RATIO 2.638 (<5); CREATININE FOR GFR 0.76 MG/DL (0.55-1.30); GLOMERULAR FILTRATION RATE > 60.0 (>51); GLUCOSE, FASTING 82 MG/DL (70-100); HDL CHOLESTEROL 72 MG/DL (>40); LDL CHOLESTEROL 83 MG/DL (<100); NON-HDL-C 118 MG/DL; POTASSIUM SERUM 4.6 MEQ/L (3.5-5.1); SODIUM LEVEL 139 MEQ/L (136-145); TOTAL PROTEIN 7.8 GM/DL (6.4-8.2); TRIGLYCERIDES LEVEL 173 MG/DL (<150)
[2020-09-28 10:20] LABS: CREATININE, URINE 50.8 MG/DL; MALB URINE SIEMENS < 5.0 MG/L; MAU/CREAT RATIO 9.8 MCG/MG (0.0-30.0)
[2020-09-29 09:42] LABS: TOTAL 25(OH) VITAMIN D 52.6 NG/ML (30.0-100.0)
== END ==
LOC: M LAB 08:37
PROVIDERS: ATTEND Nurse Practitioner Family
DX: E78.2 Mixed hyperlipidemia (principal); E55.9 Vitamin D deficiency, unspecified; I10 Essential (primary) hypertension

== ENCOUNTER 2020-11-10 07:31 | Outpatient (CLI) | payer BC ==
[~2020-11-10] VITALS: Ht 162.6 cm; Wt 84.4 kg
[~2020-11-10 07:31] MED LIST changes: +ACETAMINOPHEN 650MG ER TAB (TYLENOL ARTHRITIS) PO ONE; +NS 1,000 ML IV SCH; +diphenhydrAMINE 25MG CAP PO ONE; +inFLIXimab INJECTION 500 MG in NS 200 ML IV ONE
[2020-11-10 08:05] VITALS: BP 146/71
[2020-11-10] MEDS ORDERED: ACETAMINOPHEN TAB 650MG DOSE (2X325MG) PO ONE (08:05)
[2020-11-10 08:20] VITALS: BP 140/76
[2020-11-10 09:05] VITALS: BP 152/65
== END 2020-11-10 09:15 | disposition home or self-care (01) ==
LOC: M INFU 07:31
PROVIDERS: ATTEND Internal Medicine Gastroenterology
DX: K51.90 Ulcerative colitis, unspecified, without complications (principal)
CPT/HCPCS: 96413; J1745

== ENCOUNTER 2021-01-05 07:06 | Outpatient (CLI) | payer BC ==
[~2021-01-05] VITALS: Ht 157.5 cm; Wt 85.7 kg
[~2021-01-05 07:06] MED LIST changes: -ACETAMINOPHEN 650MG ER TAB (TYLENOL ARTHRITIS) PO ONE; +ACETAMINOPHEN 650MG PO PRIOR TO INFUSION PO ONE; -diphenhydrAMINE 25MG CAP PO ONE; +diphenhydrAMINE 25MG PO PRIOR TO INFUSION PO ONE
[2021-01-05 07:15] VITALS: BP 139/78
[2021-01-05 08:05] VITALS: BP 157/72
[2021-01-05 08:50] VITALS: BP 126/75
== END 2021-01-05 08:55 | disposition home or self-care (01) ==
LOC: M INFU 07:06
PROVIDERS: ATTEND Internal Medicine Gastroenterology
DX: K51.90 Ulcerative colitis, unspecified, without complications (principal)
CPT/HCPCS: 96413; J1745

== ENCOUNTER → 2021-01-20 | Outpatient (REF) | payer BC ==
[~2021-01-20] MED LIST changes: -ACETAMINOPHEN 650MG PO PRIOR TO INFUSION PO ONE; -NS 1,000 ML IV SCH; -diphenhydrAMINE 25MG PO PRIOR TO INFUSION PO ONE; -inFLIXimab INJECTION 500 MG in NS 200 ML IV ONE
== END ==
LOC: M SFHCWAGY 19:04
PROVIDERS: ATTEND Nurse Practitioner Women's Health
DX: Z12.4 Encounter for screening for malignant neoplasm of cervix (principal)

== ENCOUNTER → 2021-01-20 | Outpatient (CLI) | payer BC ==
--- NOTE | 2021-01-20 14:50 | REPMRS ---
Patient History The patient states she had a clinical breast exam in 12/2020. Family history of colorectal cancer at age 50 or over in father, colorectal cancer at age 50 or over in paternal uncle, colorectal cancer at age 50 or over in paternal uncle. Taking hormonal contraceptives for 17 years. Patient states no breast complaints today. Patient has signed MRS History Sheet. Digital Woman Screen Mammo: January 20, 2021 - Exam #: [id number] Bilateral CC and MLO view(s) were taken. Technologist: Shelli Song, Technologist Prior study comparison: December 31, 2019, bilateral digital woman screen mammo performed at [facility]. December 28, 2018, bilateral digital woman screen mammo performed at [facility]. December 29, 2017, digital woman screen mammo performed at [facility]. FINDINGS: There are scattered fibroglandular densities. The Volpara volumetric breast density category is: B. There is a moderate amount of residual fibroglandular tissue which is fairly symmetric. There is no interval development of dominant mass, architectural distortion, or grouped microcalcification typical of malignancy. There has been no change in the appearance of the mammogram from the prior studies. 3-D tomosynthesis shows no additional findings. Assessment: BI-RADS/ACR category 1 mammogram. Negative Mammogram. Recommendation Routine screening mammogram of both breasts in 1 year (for women over age 40). This patient's [facility] Lifetime Breast Cancer RIsk is estimated at 9.0 %. This mammogram was interpreted with the aid of an FDA-approved computer-aided dectection system. Electronically Signed By: Owen Mendoza MD 01/20/21 [id number]
== END ==
LOC: M WHC 13:15
PROVIDERS: ATTEND Nurse Practitioner Women's Health
DX: Z12.31 Encounter for screening mammogram for malignant neoplasm of breast (principal); Z80.0 Family history of malignant neoplasm of digestive organs

== ENCOUNTER 2021-03-02 07:00 | Outpatient (CLI) | payer BC ==
[~2021-03-02 07:00] MED LIST changes: +ACETAMINOPHEN 650MG PO PRIOR TO INFUSION PO ONE; +NS 1,000 ML IV SCH; +diphenhydrAMINE 25MG PO PRIOR TO INFUSION PO ONE; +inFLIXimab INJECTION 500 MG in NS 200 ML IV ONE
[2021-03-02 07:05] VITALS: BP 144/82
[2021-03-02 07:50] VITALS: BP 144/82
[2021-03-02 08:10] VITALS: BP 126/77
[2021-03-02 08:55] VITALS: BP 133/90
== END 2021-03-02 09:10 | disposition home or self-care (01) ==
LOC: M INFU 07:00
PROVIDERS: ATTEND Internal Medicine Gastroenterology
DX: K51.90 Ulcerative colitis, unspecified, without complications (principal)
CPT/HCPCS: 96413; J1745

== ENCOUNTER 2021-04-27 06:49 | Outpatient (CLI) | payer BC ==
[~2021-04-27] VITALS: Ht 162.6 cm; Wt 85.7 kg
[~2021-04-27 06:49] MED LIST changes: -ACETAMINOPHEN 650MG PO PRIOR TO INFUSION PO ONE; -NS 1,000 ML IV SCH; -diphenhydrAMINE 25MG PO PRIOR TO INFUSION PO ONE; -inFLIXimab INJECTION 500 MG in NS 200 ML IV ONE
[2021-04-27 06:50] VITALS: BP 143/68
[2021-04-27] MEDS ORDERED: ACETAMINOPHEN 650MG PO PRIOR TO INFUSION PO ONE (07:00)
[2021-04-27] MEDS ORDERED: inFLIXimab INJECTION 500 MG in NS 200 ML IV ONE (07:00)
[2021-04-27] MEDS ORDERED: NS 1,000 ML IV SCH (07:00)
[2021-04-27] MEDS ORDERED: diphenhydrAMINE 25MG PO PRIOR TO INFUSION PO ONE (07:00)
[2021-04-27 07:21] VITALS: BP 143/68
[2021-04-27 08:25] VITALS: BP 139/64
[2021-04-27 09:20] VITALS: BP 117/68
== END 2021-04-27 09:20 | disposition home or self-care (01) ==
LOC: M INFU 06:49
PROVIDERS: ATTEND Physician Assistant Medical
DX: K51.90 Ulcerative colitis, unspecified, without complications (principal)
CPT/HCPCS: 96413; J1745

== ENCOUNTER 2021-06-22 06:56 | Outpatient (CLI) | payer BC ==
[~2021-06-22] VITALS: Ht 162.6 cm; Wt 85.7 kg
[~2021-06-22 06:56] MED LIST changes: -LISI10TA15 PO; +LISI10TA24 PO
[2021-06-22] MEDS ORDERED: NS 1,000 ML IV SCH (07:00)
[2021-06-22] MEDS ORDERED: inFLIXimab INJECTION 500 MG in NS 200 ML IV ONE (07:00)
[2021-06-22] MEDS ORDERED: diphenhydrAMINE 25MG PO PRIOR TO INFUSION PO ONE (07:00)
[2021-06-22] MEDS ORDERED: ACETAMINOPHEN 650MG PO PRIOR TO INFUSION PO ONE (07:00)
[2021-06-22 07:08] VITALS: BP 133/86
[2021-06-22 08:15] VITALS: BP 164/77
[2021-06-22 09:16] VITALS: BP 124/77
[2021-08-10] MEDS ORDERED: D31000TA2 PO (14:15)
== END 2021-06-22 09:15 | disposition home or self-care (01) ==
LOC: M INFU 06:56
PROVIDERS: ATTEND Physician Assistant Medical
DX: K51.90 Ulcerative colitis, unspecified, without complications (principal)
CPT/HCPCS: 96413; J1745

== ENCOUNTER → 2021-08-17 | Outpatient (CLI) | payer BC ==
[~2021-08-17] MED LIST changes: +D31000TA2 PO
== END ==
LOC: M LABSMTC 09:47
PROVIDERS: ATTEND Anesthesiology
DX: Z01.812 Encounter for preprocedural laboratory examination (principal); Z20.822 Contact with and (suspected) exposure to COVID-19

== ENCOUNTER 2021-08-21 08:45 | Day surgery (SDC) | payer BC ==
[~2021-08-21] VITALS: Ht 157.5 cm; Wt 81.7 kg
[~2021-08-21 08:45] MED LIST changes: +LIDOCAINE 2% 100MG/5ML SDV (FOR ANES.) As Ordered ONE; +NS 1,000 ML IV ONE; +propofoL 200 MG/20 ML VIAL As Ordered ONE
[2021-08-21 11:26] VITALS: BP 158/87
== END 2021-08-21 11:23 | disposition home or self-care (01) ==
LOC: M OPP 08:45
PROVIDERS: ATTEND Internal Medicine Gastroenterology
DX: Z12.11 Encounter for screening for malignant neoplasm of colon (principal); Z86.010 Personal history of colon polyps; Z80.0 Family history of malignant neoplasm of digestive organs; K51.40 Inflammatory polyps of colon without complications; K51.00 Ulcerative (chronic) pancolitis without complications; Z79.899 Other long term (current) drug therapy; Z91.030 Bee allergy status; Z86.19 Personal history of other infectious and parasitic diseases

== ENCOUNTER 2021-10-12 06:54 | Outpatient (CLI) | payer BC ==
[~2021-10-12] VITALS: Ht 157.5 cm; Wt 83.5 kg
[~2021-10-12 06:54] MED LIST changes: -D31000TA2 PO; -LIDOCAINE 2% 100MG/5ML SDV (FOR ANES.) As Ordered ONE; -NS 1,000 ML IV ONE; +VITA100093 PO; -propofoL 200 MG/20 ML VIAL As Ordered ONE
[2021-10-12 07:00] VITALS: BP 145/82
[2021-10-12] MEDS ORDERED: diphenhydrAMINE 25MG PO PRIOR TO INFUSION PO ONE (07:00)
[2021-10-12] MEDS ORDERED: ACETAMINOPHEN 650MG PO PRIOR TO INFUSION PO ONE (07:00)
[2021-10-12] MEDS ORDERED: INFLIXIMAB BIOSIMILAR 500 MG in NS 200 ML IV ONE (07:00)
[2021-10-12] MEDS ORDERED: NS 1,000 ML IV SCH (07:00)
[2021-10-12 08:22] VITALS: BP 122/76
[2021-10-12 09:12] VITALS: BP 132/77
== END 2021-10-12 09:15 | disposition home or self-care (01) ==
LOC: M INFU 06:54
PROVIDERS: ATTEND Physician Assistant Medical
DX: K51.90 Ulcerative colitis, unspecified, without complications (principal); Z91.030 Bee allergy status
CPT/HCPCS: 96413; Q5103

== ENCOUNTER → 2021-10-26 | Outpatient (CLI) | payer BC ==
[2021-10-26 21:46] LABS: BASO # 0.1 10^3/uL (0.0-0.2); BASO % 0.8 % (0.0-1.0); EOS % 0.5 % (0.0-3.0); HEMATOCRIT 39.1 % (36.0-47.0); HEMOGLOBIN 12.9 g/dl (12.0-15.5); LYMPH # 2.4 10^3/uL (1.5-5.0); LYMPH % 30.9 % (24.0-44.0); MEAN CORPUSCULAR HEMOGLOBIN 30.5 pg (27.0-33.0); MEAN CORPUSCULAR VOLUME 92.4 fl (80.0-96.0); MONO # 0.6 10^3/uL (0.0-0.8); MONO % 7.2 % (2.0-8.0); NEUTROPHILS # 4.7 10^3/uL (1.5-8.5); NEUTROPHILS % 60.5 % (36.0-66.0); PLATELET COUNT, AUTOMATED 338 10^3/uL (150-450); RED BLOOD COUNT 4.23 10^6/uL (4.00-5.40); WHITE BLOOD COUNT 7.8 10^3/uL (4.0-10.0)
[2021-10-26 22:13] LABS: ALBUMIN 3.6 GM/DL (3.2-5.2); ALT/SGPT 28 U/L (12-78); BILIRUBIN,TOTAL 0.4 MG/DL (0.2-1.0); BLOOD UREA NITROGEN 18 MG/DL (7-18); CALCIUM LEVEL 9.5 MG/DL (8.5-10.1); CARBON DIOXIDE LEVEL 24 MEQ/L (21-32); CHLORIDE LEVEL 105 MEQ/L (98-107); CHOLESTEROL LEVEL 170 MG/DL (<200); CHOLESTEROL RISK RATIO 2.179 (<5); CREATININE FOR GFR 0.76 MG/DL (0.55-1.30); GLOMERULAR FILTRATION RATE > 60.0 (>51); GLUCOSE, FASTING 84 MG/DL (70-100); HDL CHOLESTEROL 78 MG/DL (>40); LDL CHOLESTEROL 65 MG/DL (<100); NON-HDL-C 92 MG/DL; POTASSIUM SERUM 3.8 MEQ/L (3.5-5.1); SODIUM LEVEL 137 MEQ/L (136-145); TOTAL PROTEIN 7.4 GM/DL (6.4-8.2); TRIGLYCERIDES LEVEL 133 MG/DL (<150)
[2021-10-26 22:23] LABS: PTH INTACT 26.5 PG/ML (18.5-88.0); TOTAL 25(OH) VITAMIN D 41.6 NG/ML (30.0-100.0)
== END ==
LOC: M WUC 15:03
PROVIDERS: ATTEND Physician Assistant Medical
DX: E55.9 Vitamin D deficiency, unspecified (principal); E78.2 Mixed hyperlipidemia; I10 Essential (primary) hypertension

== ENCOUNTER 2021-12-07 06:44 | Outpatient (CLI) | payer BC ==
[2021-12-07] MEDS ORDERED: NS 1,000 ML IV SCH (06:55)
[2021-12-07] MEDS ORDERED: diphenhydrAMINE 25MG PO PRIOR TO INFUSION PO ONE (06:55)
[2021-12-07] MEDS ORDERED: ACETAMINOPHEN 650MG PO PRIOR TO INFUSION PO ONE (06:55)
[2021-12-07] MEDS ORDERED: INFLIXIMAB BIOSIMILAR 500 MG in NS 200 ML IV ONE (07:00)
[2021-12-07 07:30] VITALS: BP 136/76
[2021-12-07 07:45] VITALS: BP 123/78
[2021-12-07 08:38] VITALS: BP 122/72
== END 2021-12-07 08:45 | disposition home or self-care (01) ==
LOC: M INFU 06:44
PROVIDERS: ATTEND Physician Assistant Medical
DX: K51.90 Ulcerative colitis, unspecified, without complications (principal); Z91.030 Bee allergy status
CPT/HCPCS: 96413; Q5103

== ENCOUNTER 2022-02-01 07:00 | Outpatient (CLI) | payer BC ==
[~2022-02-01] VITALS: Ht 157.5 cm; Wt 81.8 kg
[2022-02-01 07:00] VITALS: BP 128/76
[~2022-02-01 07:00] MED LIST changes: +ACETAMINOPHEN 650MG PO PRIOR TO INFUSION PO ONE; +INFLIXIMAB BIOSIMILAR 500 MG in NS 200 ML IV ONE; +NS 1,000 ML IV SCH; +diphenhydrAMINE 25MG PO PRIOR TO INFUSION PO ONE
[2022-02-01 08:08] VITALS: BP 128/77
[2022-02-01 08:55] VITALS: BP 123/74
== END 2022-02-01 08:55 | disposition home or self-care (01) ==
LOC: M INFU 07:00
PROVIDERS: ATTEND Physician Assistant Medical
DX: K51.90 Ulcerative colitis, unspecified, without complications (principal); Z91.030 Bee allergy status
CPT/HCPCS: 36592; 86480; 87340; 96413; Q5103

== ENCOUNTER 2022-03-30 07:00 | Outpatient (CLI) | payer BC ==
[~2022-03-30] VITALS: Ht 157.5 cm; Wt 83.5 kg
[2022-03-30 07:00] VITALS: BP 138/84
[~2022-03-30 07:00] MED LIST changes: +diphenhydrAMINE 25MG CAP PO ONE; -diphenhydrAMINE 25MG PO PRIOR TO INFUSION PO ONE
[2022-03-30 08:09] VITALS: BP 136/71
[2022-03-30 08:55] VITALS: BP 127/71
== END 2022-03-30 09:00 | disposition home or self-care (01) ==
LOC: M INFU 07:00
PROVIDERS: ATTEND Physician Assistant Medical
DX: K51.90 Ulcerative colitis, unspecified, without complications (principal); Z91.030 Bee allergy status
CPT/HCPCS: 96413; Q5103

== ENCOUNTER → 2022-05-07 | Outpatient (CLI) | payer BC ==
[~2022-05-07] MED LIST changes: -ACETAMINOPHEN 650MG PO PRIOR TO INFUSION PO ONE; -INFLIXIMAB BIOSIMILAR 500 MG in NS 200 ML IV ONE; -NS 1,000 ML IV SCH; -diphenhydrAMINE 25MG CAP PO ONE
[2022-05-07 12:51] LABS: BASO # 0.1 10^3/uL (0.0-0.2); BASO % 0.8 % (0.0-1.0); EOS # 0.1 10^3/uL (0.0-0.5); EOS % 1.5 % (0.0-3.0); HEMATOCRIT 40.8 % (36.0-47.0); HEMOGLOBIN 13.5 g/dl (12.0-15.5); LYMPH # 1.6 10^3/uL (1.5-5.0); LYMPH % 25.8 % (24.0-44.0); MEAN CORPUSCULAR HEMOGLOBIN 31.2 pg (27.0-33.0); MEAN CORPUSCULAR HGB CONC 33.1 g/dl (32.0-36.5); MEAN CORPUSCULAR VOLUME 94.2 fl (80.0-96.0); MONO # 0.5 10^3/uL (0.0-0.8); MONO % 8.2 % (2.0-8.0); NEUTROPHILS # 3.9 10^3/uL (1.5-8.5); NEUTROPHILS % 63.4 % (36.0-66.0); PLATELET COUNT, AUTOMATED 359 10^3/uL (150-450); RED BLOOD COUNT 4.33 10^6/uL (4.00-5.40); WHITE BLOOD COUNT 6.2 10^3/uL (4.0-10.0)
[2022-05-07 13:25] LABS: CALCIUM LEVEL 9.2 MG/DL (8.5-10.1)
[2022-05-07 14:19] LABS: PTH INTACT 37.5 PG/ML (18.5-88.0); TOTAL 25(OH) VITAMIN D 37.1 NG/ML (30.0-100.0)
== END ==
LOC: M WUC 09:26
PROVIDERS: ATTEND Physician Assistant Medical
DX: I10 Essential (primary) hypertension (principal); E55.9 Vitamin D deficiency, unspecified

== ENCOUNTER 2022-05-24 06:50 | Outpatient (CLI) | payer BC ==
[~2022-05-24] VITALS: Ht 157.5 cm; Wt 84.0 kg
[2022-05-24 06:50] VITALS: BP 137/95
[~2022-05-24 06:50] MED LIST changes: -MICR1TAB16 PO; +NORE1TAB86 PO
[2022-05-24] MEDS ORDERED: diphenhydrAMINE 25MG PO PRIOR TO INFUSION PO ONE (07:00)
[2022-05-24] MEDS ORDERED: INFLIXIMAB BIOSIMILAR 500 MG in NS 200 ML IV ONE (07:00)
[2022-05-24] MEDS ORDERED: ACETAMINOPHEN 650MG PO PRIOR TO INFUSION PO ONE (07:00)
[2022-05-24] MEDS ORDERED: NS 1,000 ML IV SCH (07:30)
[2022-05-24 08:07] VITALS: BP 127/81
[2022-05-24 09:00] VITALS: BP 140/78
== END 2022-05-24 09:00 | disposition home or self-care (01) ==
LOC: M INFU 06:50
PROVIDERS: ATTEND Physician Assistant Medical
DX: K51.90 Ulcerative colitis, unspecified, without complications (principal); Z91.030 Bee allergy status
CPT/HCPCS: 96413; Q5103

== ENCOUNTER → 2022-06-04 | Outpatient (REF) | payer BC | LOC: M PLALAB 15:24 | PROVIDERS: ATTEND Nurse Practitioner Family | DX: Z12.4 Encounter for screening for malignant neoplasm of cervix (principal); R87.610 Atypical squamous cells of undetermined significance on cytologic smear of cervix (ASC-US) ==

== ENCOUNTER 2022-07-20 06:45 | Outpatient (CLI) | payer BC ==
[~2022-07-20] VITALS: Ht 162.6 cm; Wt 84.8 kg
[2022-07-20] MEDS ORDERED: diphenhydrAMINE 25MG PO PRIOR TO INFUSION PO ONE (07:00)
[2022-07-20] MEDS ORDERED: ACETAMINOPHEN 650MG PO PRIOR TO INFUSION PO ONE (07:00)
[2022-07-20] MEDS ORDERED: NS 1,000 ML IV SCH (07:00)
[2022-07-20] MEDS ORDERED: INFLIXIMAB BIOSIMILAR 500 MG in NS 200 ML IV ONE (07:00)
[2022-07-20 07:26] VITALS: BP 177/101
[2022-07-20 09:00] VITALS: BP 118/72
== END 2022-07-20 09:00 ==
LOC: M INFU 06:45
PROVIDERS: ATTEND Physician Assistant Medical
DX: K51.90 Ulcerative colitis, unspecified, without complications (principal); Z91.030 Bee allergy status
CPT/HCPCS: 96413; Q5103

== ENCOUNTER 2022-09-13 06:45 | Outpatient (CLI) | payer BC ==
[2022-09-13 06:50] VITALS: BP 135/84
[2022-09-13] MEDS ORDERED: INFLIXIMAB BIOSIMILAR 500 MG in NS 200 ML IV ONE (07:00)
[2022-09-13] MEDS ORDERED: diphenhydrAMINE 25MG PO PRIOR TO INFUSION PO ONE (07:00)
[2022-09-13] MEDS ORDERED: ACETAMINOPHEN 650MG PO PRIOR TO INFUSION PO ONE (07:00)
[2022-09-13] MEDS ORDERED: NS 1,000 ML IV SCH (07:00)
[2022-09-13 08:27] VITALS: BP 132/69
[2022-09-13 09:40] VITALS: BP 111/74
== END 2022-09-13 09:40 | disposition home or self-care (01) ==
LOC: M INFU 06:45
PROVIDERS: ATTEND Physician Assistant Medical
DX: K51.90 Ulcerative colitis, unspecified, without complications (principal); Z91.030 Bee allergy status
CPT/HCPCS: 96413; 96415; Q5103

== ENCOUNTER → 2022-09-13 | Outpatient (CLI) | payer BC | LOC: M INFU 06:50 | PROVIDERS: ATTEND Physician Assistant Medical | DX: K51.90 Ulcerative colitis, unspecified, without complications (principal); Z91.030 Bee allergy status ==

== ENCOUNTER → 2022-11-05 | Outpatient (CLI) | payer BC ==
[~2022-11-05] MED LIST changes: +FLUT50SP17; -FLUTISP
== END ==
LOC: M WHC 13:28
PROVIDERS: ATTEND Physician Assistant Medical
DX: Z12.39 Encounter for other screening for malignant neoplasm of breast (principal)

== ENCOUNTER → 2022-11-05 | Outpatient (CLI) | payer BC ==
[2022-11-05 15:53] LABS: ALBUMIN 3.6 G/DL (3.2-5.2); ALKALINE PHOSPHATASE 47 U/L (46-116); ALT/SGPT 31 U/L (7.0-40); AST/SGOT 25 U/L (<34); BILIRUBIN,TOTAL 0.4 MG/DL (0.3-1.2); BLOOD UREA NITROGEN 15 MG/DL (9-23); CALCIUM LEVEL 8.9 MG/DL (8.5-10.1); CARBON DIOXIDE LEVEL 25 MMOL/L (20-31); CHLORIDE LEVEL 102 MMOL/L (98-107); CHOLESTEROL LEVEL 178 MG/DL (<200); CHOLESTEROL RISK RATIO 2.74 (<5); CREATININE FOR GFR 0.61 MG/DL (0.55-1.30); GLOMERULAR FILTRATION RATE > 60.0 (>51); GLUCOSE, FASTING 83 MG/DL (60-100); HDL CHOLESTEROL 64.9 MG/DL (>40); LDL CHOLESTEROL 73.5 MG/DL (<100); NON-HDL-C 113.1 MG/DL; POTASSIUM SERUM 4.1 MMOL/L (3.5-5.1); SODIUM LEVEL 136 MMOL/L (136-145); TOTAL PROTEIN 7.6 G/DL (5.7-8.2); TRIGLYCERIDES LEVEL 198 MG/DL (<150)
== END ==
LOC: M PLALAB 14:02
PROVIDERS: ATTEND Physician Assistant Medical
DX: E78.2 Mixed hyperlipidemia (principal)

== ENCOUNTER 2022-11-08 07:59 | Outpatient (CLI) | payer BC ==
[~2022-11-08] VITALS: Ht 157.5 cm; Wt 84.0 kg
[2022-11-08 08:20] VITALS: BP 146/72
[2022-11-08] MEDS ORDERED: INFLIXIMAB BIOSIMILAR 500 MG in NS 200 ML IV ONE (08:30)
[2022-11-08] MEDS ORDERED: NS 1,000 ML IV SCH (08:30)
[2022-11-08] MEDS ORDERED: ACETAMINOPHEN 650MG PO PRIOR TO INFUSION PO ONE (08:30)
[2022-11-08] MEDS ORDERED: diphenhydrAMINE 25MG PO PRIOR TO INFUSION PO ONE (08:30)
[2022-11-08 09:35] VITALS: BP 143/74
== END 2022-11-08 09:35 | disposition home or self-care (01) ==
LOC: M INFU 07:59
PROVIDERS: ATTEND Physician Assistant Medical
DX: K51.90 Ulcerative colitis, unspecified, without complications (principal); Z91.030 Bee allergy status
CPT/HCPCS: 96413; Q5103

== ENCOUNTER → 2022-11-11 | Outpatient (REF) | payer BC | LOC: M SFHCPLAZ 13:05 | PROVIDERS: ATTEND Physician Assistant Medical | DX: E78.2 Mixed hyperlipidemia (principal); E55.9 Vitamin D deficiency, unspecified; J30.89 Other allergic rhinitis; J45.20 Mild intermittent asthma, uncomplicated; Z53.9 Procedure and treatment not carried out, unspecified reason ==

== ENCOUNTER → 2023-01-03 | Outpatient (REF) | payer BC | LOC: M LAB REF 09:05 | PROVIDERS: ATTEND Physician Assistant Medical | DX: K51.00 Ulcerative (chronic) pancolitis without complications (principal); R19.4 Change in bowel habit ==

== ENCOUNTER 2023-02-28 07:00 | Outpatient (CLI) | payer BC ==
[~2023-02-28] VITALS: Ht 157.5 cm; Wt 88.6 kg
[~2023-02-28 07:00] MED LIST changes: +ACETAMINOPHEN 650MG PO PRIOR TO INFUSION PO ONE; +NS 1,000 ML IV SCH; +dexameTHASONE 20 MG IV PRIOR TO INFUSION IV ONE
[2023-02-28 07:24] VITALS: BP 141/75; O2SAT 97
[2023-02-28] MEDS ORDERED: INFLIXIMAB BIOSIMILAR 500 MG in NS 200 ML IV ONE (07:30)
[2023-02-28 08:15] VITALS: BP 147/76; O2SAT 100
[2023-02-28 09:00] VITALS: BP 124/70; TEMP 37; O2SAT 98
[2023-02-28] MEDS ORDERED: CURRENT HEIGHT AND WEIGHT NEEDED ON PATIENT XX SCH (09:00)
== END 2023-02-28 09:00 | disposition home or self-care (01) ==
LOC: M INFU 07:00
PROVIDERS: ATTEND Physician Assistant Medical
DX: K51.90 Ulcerative colitis, unspecified, without complications (principal)
CPT/HCPCS: 96413; Q5103

== ENCOUNTER → 2023-04-14 | Outpatient (REF) | payer BC ==
[~2023-04-14] MED LIST changes: -ACETAMINOPHEN 650MG PO PRIOR TO INFUSION PO ONE; -NS 1,000 ML IV SCH; -dexameTHASONE 20 MG IV PRIOR TO INFUSION IV ONE
== END ==
LOC: M LAB REF 09:38
PROVIDERS: ATTEND Physician Assistant Medical
DX: K51.00 Ulcerative (chronic) pancolitis without complications (principal)

== ENCOUNTER 2023-05-09 07:15 | Outpatient (CLI) | payer BC ==
[~2023-05-09] VITALS: Ht 157.5 cm; Wt 87.3 kg
[2023-05-09 07:15] VITALS: BP 150/75; TEMP 97.8; O2SAT 95
[2023-05-09] MEDS ORDERED: VEDOLIZUMAB 300 MG in NS 250 ML IV ONE (07:30)
[2023-05-09 08:45] VITALS: BP 118/80; TEMP 97.8; O2SAT 95
[2023-05-09 09:15] VITALS: BP 132/78; O2SAT 97
== END 2023-05-09 09:15 ==
LOC: M INFU 07:15
PROVIDERS: ATTEND Internal Medicine Gastroenterology
DX: K51.90 Ulcerative colitis, unspecified, without complications (principal); Z91.030 Bee allergy status; Z91.048 Other nonmedicinal substance allergy status
CPT/HCPCS: 96365; J3380

== ENCOUNTER 2023-05-23 06:55 | Outpatient (CLI) | payer BC ==
[~2023-05-23] VITALS: Ht 157.5 cm; Wt 89.9 kg
[2023-05-23] MEDS ORDERED: VEDOLIZUMAB 300 MG in NS 250 ML IV ONE (07:00)
[2023-05-23 07:37] VITALS: BP 163/77; O2SAT 98
[2023-05-23 08:15] VITALS: BP 140/85; TEMP 36.7; O2SAT 98
== END 2023-05-23 08:15 ==
LOC: M INFU 06:55
PROVIDERS: ATTEND Internal Medicine Gastroenterology
DX: K51.90 Ulcerative colitis, unspecified, without complications (principal); Z91.030 Bee allergy status; Z91.048 Other nonmedicinal substance allergy status
CPT/HCPCS: 96365; J3380

== ENCOUNTER → 2023-06-10 | Outpatient (REF) | payer BC | LOC: M PLALAB 13:43 | PROVIDERS: ATTEND Nurse Practitioner Family | DX: Z12.4 Encounter for screening for malignant neoplasm of cervix (principal) ==

== ENCOUNTER 2023-06-20 07:00 | Outpatient (CLI) | payer BC ==
[~2023-06-20] VITALS: Ht 157.5 cm; Wt 88.6 kg
[2023-06-20 07:00] VITALS: BP 132/76; O2SAT 98
[2023-06-20] MEDS ORDERED: VEDOLIZUMAB 300 MG in NS 250 ML IV ONE (07:30)
[2023-06-20 08:35] VITALS: BP 137/78; O2SAT 99
== END 2023-06-20 08:35 ==
LOC: M INFU 07:00
PROVIDERS: ATTEND Internal Medicine Gastroenterology
DX: K51.90 Ulcerative colitis, unspecified, without complications (principal); Z91.030 Bee allergy status; Z91.048 Other nonmedicinal substance allergy status
CPT/HCPCS: 96365; J3380

== ENCOUNTER 2023-10-10 07:00 | Outpatient (CLI) | payer BC ==
[~2023-10-10] VITALS: Ht 154.9 cm; Wt 87.0 kg
[2023-10-10 07:00] VITALS: BP 172/79; O2SAT 98
[~2023-10-10 07:00] MED LIST changes: -FLUT50SP17; +FLUTISP
[2023-10-10] MEDS: VEDOLIZUMAB 300 MG in NS 250 ML IV ONE (07:43)
[2023-10-10 08:30] VITALS: BP 137/73; O2SAT 98
== END 2023-10-10 08:30 ==
LOC: M INFU 07:00
PROVIDERS: ATTEND Internal Medicine Gastroenterology
DX: K51.90 Ulcerative colitis, unspecified, without complications (principal); Z91.030 Bee allergy status; Z91.048 Other nonmedicinal substance allergy status
CPT/HCPCS: 96365; J3380

== ENCOUNTER → 2023-12-02 | Outpatient (CLI) | payer OTHER ==
[2023-12-02 13:39] LABS: BASO # 0.1 10^3/uL (0.0-0.2); BASO % 0.6 % (0.0-1.0); EOS # 0.1 10^3/uL (0.0-0.5); EOS % 0.5 % (0.0-3.0); HEMATOCRIT 44.2 % (36.0-47.0); HEMOGLOBIN 14.8 g/dl (12.0-15.5); MEAN CORPUSCULAR HEMOGLOBIN 31.2 pg (27.0-33.0); MEAN CORPUSCULAR HGB CONC 33.5 g/dl (32.0-36.5); MEAN CORPUSCULAR VOLUME 93.2 fl (80.0-96.0); MONO # 0.6 10^3/uL (0.0-0.8); MONO % 5.8 % (2.0-8.0); NEUTROPHILS # 8.3 10^3/uL (1.5-8.5); NEUTROPHILS % 74.8 % (36.0-66.0); PLATELET COUNT, AUTOMATED 448 10^3/uL (150-450); RED BLOOD COUNT 4.74 10^6/uL (4.00-5.40)
[2023-12-02 13:52] LABS: ERYTHROCYTE SEDIMENTATION RATE 27 mm/hr (0-30)
[2023-12-02 14:17] LABS: ALBUMIN 3.4 G/DL (3.2-5.2); ALKALINE PHOSPHATASE 55 U/L (46-116); ALT/SGPT 24 U/L (7.0-40); AST/SGOT 21 U/L (<34); BILIRUBIN,TOTAL 0.4 MG/DL (0.3-1.2); BLOOD UREA NITROGEN 13 MG/DL (9-23); CALCIUM LEVEL 9.7 MG/DL (8.5-10.1); CARBON DIOXIDE LEVEL 25 MMOL/L (20-31); CHLORIDE LEVEL 104 MMOL/L (98-107); CREATININE FOR GFR 0.65 MG/DL (0.55-1.30); GLOMERULAR FILTRATION RATE > 60.0 (>51); GLUCOSE, FASTING 98 MG/DL (60-100); POTASSIUM SERUM 4.7 MMOL/L (3.5-5.1); SODIUM LEVEL 139 MMOL/L (136-145); TOTAL PROTEIN 7.5 G/DL (5.7-8.2)
== END ==
LOC: M PLALAB 09:26
PROVIDERS: ATTEND Physician Assistant Medical
DX: S05.92XA Unspecified injury of left eye and orbit, initial encounter (principal); E78.2 Mixed hyperlipidemia

== ENCOUNTER → 2024-02-28 | Outpatient (REF) | payer OTHER | LOC: M LAB REF 10:17 | PROVIDERS: ATTEND Physician Assistant Medical | DX: K51.00 Ulcerative (chronic) pancolitis without complications (principal) ==

== ENCOUNTER 2024-05-14 06:44 | Day surgery (SDC) | payer OTHER ==
[~2024-05-14] VITALS: Ht 157.5 cm; Wt 83.5 kg
[~2024-05-14 06:44] MED LIST changes: +NORE-30 PO; -NORE1TAB86 PO; +NS 250 ML IV ONE; +THERTAB52 PO; +[UNRECOGNIZED DRUG - CODE] SQ
[2024-05-14] MEDS ORDERED: GLYCOPYRROLATE INJ 0.2 MG/ML 2 ML VIAL As Ordered ONE (07:22)
[2024-05-14] MEDS ORDERED: propofoL 200 MG/20 ML VIAL As Ordered ONE (07:22)
[2024-05-14] MEDS ORDERED: ePHEDrine SULFATE 25 MG/5 ML(5MG/ML) SYRINGE As Ordered ONE (08:53)
[2024-05-14 09:04] VITALS: TEMP 98.7
[2024-05-14 09:20] VITALS: BP 121/66; O2SAT 97
== END 2024-05-14 09:30 | disposition home or self-care (01) ==
LOC: M OPP 06:44
PROVIDERS: ATTEND Internal Medicine Gastroenterology
DX: Z12.11 Encounter for screening for malignant neoplasm of colon (principal); K63.5 Polyp of colon; K51.00 Ulcerative (chronic) pancolitis without complications; Z86.0100 Personal history of colon polyps, unspecified; Z80.0 Family history of malignant neoplasm of digestive organs; I10 Essential (primary) hypertension; E78.00 Pure hypercholesterolemia, unspecified; Z79.899 Other long term (current) drug therapy; Z87.891 Personal history of nicotine dependence; Z91.030 Bee allergy status
CPT/HCPCS: 45380; 45385; 88305; J1596

== ENCOUNTER → 2024-06-01 | Outpatient (CLI) | payer OTHER ==
[~2024-06-01] MED LIST changes: -NS 250 ML IV ONE
[2024-06-01 11:10] LABS: BASO # 0.1 10^3/uL (0.0-0.2); BASO % 0.9 % (0.0-1.0); EOS # 0.1 10^3/uL (0.0-0.5); EOS % 1.1 % (0.0-3.0); HEMATOCRIT 41.8 % (36.0-47.0); HEMOGLOBIN 13.6 g/dl (12.0-15.5); LYMPH # 1.9 10^3/uL (1.5-5.0); LYMPH % 23.4 % (24.0-44.0); MEAN CORPUSCULAR HEMOGLOBIN 30.7 pg (27.0-33.0); MEAN CORPUSCULAR HGB CONC 32.5 g/dl (32.0-36.5); MEAN CORPUSCULAR VOLUME 94.4 fl (80.0-96.0); MONO # 0.5 10^3/uL (0.0-0.8); MONO % 6.3 % (2.0-8.0); NEUTROPHILS # 5.4 10^3/uL (1.5-8.5); PLATELET COUNT, AUTOMATED 380 10^3/uL (150-450); RED BLOOD COUNT 4.43 10^6/uL (4.00-5.40); WHITE BLOOD COUNT 7.9 10^3/uL (4.0-10.0)
[2024-06-01 11:12] LABS: ALBUMIN 3.4 G/DL (3.2-5.2); ALKALINE PHOSPHATASE 45 U/L (35-104); ALT/SGPT 21 U/L (7.0-40); AST/SGOT 16 U/L (<34); BILIRUBIN,TOTAL 0.5 MG/DL (0.3-1.2); BLOOD UREA NITROGEN 14 MG/DL (9-23); CALCIUM LEVEL 9.6 MG/DL (8.5-10.1); CARBON DIOXIDE LEVEL 24 MMOL/L (20-31); CHLORIDE LEVEL 106 MMOL/L (98-107); CREATININE FOR GFR 0.54 MG/DL (0.55-1.30); GLOMERULAR FILTRATION RATE > 60.0 (>51); GLUCOSE, FASTING 91 MG/DL (60-100); POTASSIUM SERUM 4.5 MMOL/L (3.5-5.1); PTH INTACT 69.8 PG/ML (18.5-88.0); SODIUM LEVEL 138 MMOL/L (136-145); TOTAL PROTEIN 7.3 G/DL (5.7-8.2)
[2024-06-01 11:15] LABS: TOTAL 25(OH) VITAMIN D 31.9 NG/ML (20.0-100.0)
== END ==
LOC: M WUC 08:11
PROVIDERS: ATTEND Physician Assistant Medical
DX: E55.9 Vitamin D deficiency, unspecified (principal); I10 Essential (primary) hypertension; J45.20 Mild intermittent asthma, uncomplicated

== ENCOUNTER → 2024-06-29 | Outpatient (REF) | payer OTHER ==
[2024-06-29 18:55] LABS: CHOLESTEROL RISK RATIO 2.68 (<5); HDL CHOLESTEROL 70.1 MG/DL (>40); LDL CHOLESTEROL 74.7 MG/DL (<100); NON-HDL-C 117.9 MG/DL
== END ==
LOC: M SFHCPLAZ 14:21
PROVIDERS: ATTEND Physician Assistant Medical
DX: E78.2 Mixed hyperlipidemia (principal)

== ENCOUNTER → 2024-09-21 | Outpatient (CLI) | payer OTHER | LOC: M WHC 12:56 | PROVIDERS: ATTEND Obstetrics & Gynecology | DX: Z12.31 Encounter for screening mammogram for malignant neoplasm of breast (principal) ==

== ENCOUNTER → 2025-03-26 | Outpatient (CLI) | payer OTHER | LOC: M PLALAB 07:21 | PROVIDERS: ATTEND Internal Medicine Gastroenterology | DX: K51.00 Ulcerative (chronic) pancolitis without complications (principal) ==

== ENCOUNTER → 2025-03-26 | Outpatient (CLI) | payer OTHER ==
[2025-03-26 10:48] LABS: BASO # 0.1 10^3/uL (0.0-0.2); BASO % 0.8 % (0.0-1.0); EOS # 0.2 10^3/uL (0.0-0.5); EOS % 1.9 % (0.0-3.0); LYMPH # 2.9 10^3/uL (1.5-5.0); LYMPH % 37.2 % (24.0-44.0); MONO # 0.6 10^3/uL (0.0-0.8); MONO % 7.6 % (2.0-8.0); NEUTROPHILS # 4.1 10^3/uL (1.5-8.5); NEUTROPHILS % 52.2 % (36.0-66.0); PLATELET COUNT, AUTOMATED 351 10^3/uL (150-450)
[2025-03-26 10:51] LABS: ALT/SGPT 81 U/L (7.0-40); AST/SGOT 39 U/L (<34); CALCIUM LEVEL 10.3 MG/DL (8.5-10.1); CARBON DIOXIDE LEVEL 26 MMOL/L (20-31); CHLORIDE LEVEL 105 MMOL/L (98-107); CHOLESTEROL LEVEL 174 MG/DL (<200); CHOLESTEROL RISK RATIO 2.69 (<5); CREATININE FOR GFR 0.64 MG/DL (0.55-1.30); GLOMERULAR FILTRATION RATE > 90.0 (>51); LDL CHOLESTEROL 73.0 MG/DL (<100); NON-HDL-C 109.4 MG/DL; POTASSIUM SERUM 4.2 MMOL/L (3.5-5.1); SODIUM LEVEL 142 MMOL/L (136-145); TRIGLYCERIDES LEVEL 182 MG/DL (<150)
== END ==
LOC: M PLALAB 07:19
PROVIDERS: ATTEND Physician Assistant Medical
DX: I10 Essential (primary) hypertension (principal); J30.89 Other allergic rhinitis; J45.20 Mild intermittent asthma, uncomplicated; E78.2 Mixed hyperlipidemia